=== PATIENT | female | born 1940 | race Caucasian/White ===

== ENCOUNTER → 2016-11-29 | Outpatient (CLI) | payer MEDICARE ==
--- NOTE | 2016-12-02 17:10 | Diagnostic Imaging Report ---
EXAM: Bilateral screening mammogram The current study was also evaluated with a Computer Aided Detection (CAD) system. INDICATION: Screening. No current complaints stated on the questionnaire. COMPARISON: 11/26/2015. FINDINGS: The breasts are composed of scattered from densities. There are occasional benign-appearing calcifications. Allowing for technique and positional differences, no suspicious change is seen. IMPRESSION: No significant change. ACR BI-RADS Category 2: Benign findings. Result letter will be mailed to the patient. Note: At least 10% of breast cancer is not imaged by mammography. Dictated by: Dictated on workstation # [id number]
== END ==
LOC: RAD 10:03
PROVIDERS: ATTEND Internal Medicine
DX: Z12.31 Encounter for screening mammogram for malignant neoplasm of breast (principal)
CPT/HCPCS: 77067

== ENCOUNTER → 2017-12-01 | Outpatient (CLI) | payer MEDICARE ==
--- NOTE | 2017-12-01 19:51 | Diagnostic Imaging Report ---
INDICATION: Routine screening. COMPARISON: Comparison is made with prior mammogram from 11/29/2016 and 11/26/2015. TECHNIQUE: Bilateral 3D digital tomographic views were obtained with [employer] and reviewed on a [employer] workstation. In addition, CAD - computer aided detection was utilized. FINDINGS: Scattered fibroglandular densities are identified bilaterally. No dominant mass or malignant-appearing microcalcifications are seen. Circumscribed nodular density in the posterior left breast at the nipple line on the MLO view is noted and appears benign. Axillae are unremarkable. IMPRESSION: No mammographic features suspicious for malignancy are identified. ACR BI-RADS Category 2: Benign findings. Result letter will be mailed to the patient. Note: At least 10% of breast cancer is not imaged by mammography. Dictated by: Dictated on workstation # [id number]
== END ==
LOC: RAD 10:51
PROVIDERS: ATTEND Nurse Practitioner
DX: Z12.31 Encounter for screening mammogram for malignant neoplasm of breast (principal)
CPT/HCPCS: 77067

== ENCOUNTER → 2018-12-04 | Outpatient (CLI) | payer MEDICARE ==
--- NOTE | 2018-12-04 11:56 | Diagnostic Imaging Report ---
INDICATION: Screening. TECHNIQUE: Bilateral CC and MLO 3D mammography was performed. The current study was also evaluated with a Computer Aided Detection (CAD) system. COMPARISON: 12/01/2017, 11/29/2016, and 11/26/2015. FINDINGS: There are scattered fibroglandular densities bilaterally. There are a few benign type calcifications. There is no dominant mass, spiculated lesion, or suspicious calcifications identified. The skin, nipples, and axillae are unremarkable. IMPRESSION: Benign findings. ACR BI-RADS Category 2: Benign findings. Result letter will be mailed to the patient. Note: At least 10% of breast cancer is not imaged by mammography. Dictated by: Dictated on workstation # [id number]
== END ==
LOC: RAD 07:25
PROVIDERS: ATTEND Nurse Practitioner
DX: Z12.31 Encounter for screening mammogram for malignant neoplasm of breast (principal)
CPT/HCPCS: 77067

== ENCOUNTER → 2021-01-06 | Outpatient (CLI) | payer MEDICARE ==
--- NOTE | 2021-01-06 15:54 | Diagnostic Imaging Report ---
INDICATION: Pain. COMPARISON: 03/18/2008 TECHNIQUE: 3 radiographs lumbar spine dated 01/06/2021 FINDINGS: 5 lumbar type vertebral bodies are present. Mild apex left curvature of the lumbar spine, having developed since 2008. 4 mm anterolisthesis of L3 on L4, stable from the prior examination. 5 mm retrolisthesis of L1 on L2, stable to minimally worsened when compared to 2008. 3 mm retrolisthesis of L2 on L3, worsened since the prior examination. Moderate superior endplate compression deformity of L1 is present, appearing relatively similar to the prior examination. Mild scattered endplate degenerative changes are present, worsened since 2008. No new vertebral body compression deformity. Moderate disc space height loss at L4/L5, worsened since the prior examination. Mild disc space height loss at L3/L4, worsened since the prior examination. Moderate disc space height loss at L2/L3, worsened since the prior examination. Multilevel anterior osteophyte formation. Scattered facet joint degenerative changes. The sacroiliac joints are intact. No acute fracture. Moderate background vascular calcifications. IMPRESSION: Worsening moderate multilevel degenerative changes as described above without acute osseous abnormality. Chronic compression deformity involving L1. Multilevel anterolisthesis and retrolisthesis as described above, the majority appearing stable since 2007. Minimal new retrolisthesis at L2 on L3 is favored to be degenerative in nature. Dictated by: Dictated on workstation # [id number]
== END ==
LOC: RAD 15:05
PROVIDERS: ATTEND Physician Assistant
DX: S32.010A Wedge compression fracture of first lumbar vertebra, initial encounter for closed fracture (principal); M51.36 Other intervertebral disc degeneration, lumbar region; M43.16 Spondylolisthesis, lumbar region; M25.78 Osteophyte, vertebrae
CPT/HCPCS: 72100

== ENCOUNTER 2021-01-10 13:46 | Emergency (ER) | payer MEDICARE ==
[~2021-01-10] VITALS: Ht 152.4 cm; Wt 65.9 kg
--- NOTE | 2021-01-10 14:18 | ED General ---
General Chief Complaint: General Problems/Pain Stated Complaint: CONSTIPATION X 9 DAYS Nursing Triage Note: AMB TO ROOM REPORTS NO BM FOR 9 DAY WAS SEEN BY ABRAHAN DUFF ON TUE FOR SCIATIC PAIN AND NO BM WAS TOLD TO TAKE MAG CITRATE. TOOK HALF A BOTTLE YESTERDAY AND 1/2 TODAY WITH NO RESULTS. NO PAIN Nursing Sepsis Screen: No Definite Risk Source of Information: Patient Exam Limitations: No Limitations (GARETH VELAZQUEZ STUDENT) History of Present Illness Date Seen by Provider: Jan 10, 2021 Time Seen by Provider: 14:13 Initial Comments Mrs. Díaz is an 80 yo female that presents today with 9 days of constipation. She states that LBM was 01/01. States that on tuesday this week she went to the doctor and received twice daily miralax. She said that this did not help and was given a bottle of mag citrate. She took half of the bottle yesterday and half this morning around 7 and still has not been able to have a bowel movement. She has had constipation in the past but never as bad as this. Her appetite is a little less than usual, but she is still eating normally. Denies nausea/vomiting with meals. She is still passing gas, and does not complain of any pain. She denies taking any medications that could cause constipation. Timing/Duration: 1 Week Severity: Mild Modifying Factors: worse with Eating Associated Systoms: No Fever/Chills, No Nausea/Vomiting (GARETH VELAZQUEZ STUDENT) Allergies and Home Medications Patient Home Medication List Home Medication List Reviewed: Yes (GARETH VELAZQUEZ) Review of Systems Review of Systems Constitutional: No chills, No fever EENTM: no symptoms reported Respiratory: No cough, No phlegm, No short of breath Cardiovascular: No chest pain, No palpitations Gastrointestinal: No abdominal pain; constipation; No diarrhea, No dysphagia; loss of appetite (mild); No nausea, No vomiting Genitourinary: No discharge, No dysuria, No frequency Musculoskeletal: no symptoms reported; No joint pain, No joint swelling Skin: No rash (GARETH VELAZQUEZ STUDENT) Past Yhfonih-Mkxyyd-Kllfti Hx Patient Social History Recent Infectious Disease Expo: No (GARETH VELAZQUEZ) Past Medical History Cardiac: Yes High Cholesterol Cancer: Yes Brain (Tumor, uncharacterized) (BHUPINDER FLETCHER MD) Physical Exam Vital Signs Vital Signs - First Documented 01/10/21 13:50 Temp 36.8 Pulse 98 Resp 18 B/P (MAP) 138/70 (92) Pulse Ox 94 O2 Delivery Room Air (BHUPINDER FLETCHER MD) Vital Signs Capillary Refill : Less Than 3 Seconds (GARETH VELAZQUEZ STUDENT) Height, Weight, BMI Height: '" Weight: lbs. oz. kg; 28.00 BMI Method: General Appearance: No Apparent Distress, WD/WN Respiratory: Chest Non Tender, Lungs Clear, Normal Breath Sounds, No Accessory Muscle Use, No Respiratory Distress Cardiovascular: Regular Rate, Rhythm, No Edema, No Murmur, Normal Peripheral Pulses Gastrointestinal: Normal Bowel Sounds, No Organomegaly, No Pulsatile Mass, Non Tender, Soft Rectal: Deferred Extremity: Non Tender, No Calf Tenderness Neurologic/Psychiatric: Alert, Oriented x3 Skin: Normal Color, Warm/Dry (GARETH VELAZQUEZ) Progress/Results/Core Measures Suspected Sepsis Recent Fever Within 48 Hours: No Infection Criteria Present: None New/Unexplained Altered Menta: No Sepsis Screen: No Definite Risk SIRS Temperature: Pulse: 98 Respiratory Rate: 18 Blood Pressure 138 /70 Mean: 92 (GARETH VELAZQUEZ STUDENT) Results/Orders My Orders Orders - BHUPINDER FLETCHER MD Abdomen, Flat & Upright/Decub (01/10/21 14:35) (BHUPINDER FLETCHER MD) Vital Signs/I&O 01/10/21 01/10/21 13:50 15:29 Temp 36.8 Pulse 98 98 Resp 18 18 B/P (MAP) 138/70 (92) 138/70 Pulse Ox 94 94 O2 Delivery Room Air Room Air (BHUPINDER FLETCHER MD) Vital Signs/I&O Capillary Refill : Less Than 3 Seconds (GARETH VELAZQUEZ STUDENT) Blood Pressure Mean: 92 Diagnostic Imaging Diagonstic Imaging: Xray Plain Films/CT/US/NM/MRI: abdomen, pelvis Comments Abdominal x-ray viewed by me and report reviewed. See report below: NAME: JEAN DÍAZ Shannon MED REC#: [id number] PT STATUS: REG ER : 1940 PHYSICIAN: BHUPINDER FLETCHER MD ADMIT DATE: 01/10/21/ER Signed Date of Exam:01/10/21 ABDOMEN, FLAT & UPRIGHT/DECUB INDICATION: Abdominal pain. EXAMINATION: Supine and erect views of the abdomen were obtained. COMPARISON: There is no prior abdomen examination available for comparison. FINDINGS: There is gas in both the large and small bowel in a nonspecific fashion. There also appears to be a considerable amount of fecal material throughout the colon and there does seem to be a fecal impaction. These findings are similar to the recent lumbar spine exam of 01/06/2021. There is no mass or organomegaly identified. There is no pneumoperitoneum evident. There are a few faint calcifications in the left pelvis. These could be related to a uterine fibroid. Degenerative disc and bony disease is again seen throughout the lumbar spine. IMPRESSION: 1. The bowel gas pattern is nonspecific. There is no acute abnormality identified. 2. There is a considerable amount of fecal material throughout the colon and there is a fecal impaction as well. Dictated by: Dictated on workstation # [id number] Dict: 01/10/21 1501 Trans: 01/10/21 1514 [facility] [id number] Interpreted by: DON DOMINIQUE MD Electronically signed by: DON DOMINIQUE MD 01/10/21 1514 (BHUPINDER FLETCHER MD) Departure Impression Primary Impression: Fecal impaction Additional Impression: Constipation Qualified Codes: K59.00 - Constipation, unspecified Disposition: 01 HOME, SELF-CARE Condition: Stable Departure-Patient Inst. Decision time for Depature: 15:21 (BHUPINDER FLETCHER MD) Referrals: JHON CUEVAS MD (PCP/Family) Primary Care Physician Patient Instructions: Constipation in Adults, Fecal Impaction Add. Discharge Instructions: Adhere to a clear liquid diet for the remainder of today. You may continue to use MiraLAX (polyethylene glycol) 3 or 4 times a day for treatment of constipation. In addition to constipation you also have a fecal impaction (stool ball) in your rectum. Using enemas may help dissolve this stool ball and help it pass. You may use 1 or 2 enemas today and possibly an additional enema in the morning. If this does not resolve your constipation and help you pass the stool ball, consider returning for manual disimpaction by an ER provider. You may use Tylenol (acetaminophen) up to 1000 mg every 6 hours as needed. Add ibuprofen sparingly up to 400 mg every 6 hours as needed. Call with questions or concerns. Return to the ER if you have worsening symptoms. All discharge instructions reviewed with patient and/or family. Voiced understanding. Medical Student Attestation and Attending Note: I have personally interviewed and examined this patient along with Gareth Lujan, MS4. I have reviewed student documentation including history, physical, and assessments. I agree with the documentation except where otherwise noted. Exam: General: Alert, oriented, no acute distress, well developed HEENT: Normocephalic and atraumatic Heart: Regular rate and rhythm without murmur Lungs: Clear to auscultation bilaterally with normal effort Abdomen: Soft, nontender, nondistended, normal bowel sounds, fullness in the right lower abdomen suspected to be palpable stool Neuropsych: Alert, oriented, no focal deficits Skin: Warm and dry without rashes After review of x-ray, options were discussed with patient. Options include possibility for manual disimpaction versus continued MiraLAX and use of enemas. Patient prefers the latter. She was encouraged to return tomorrow if she is not making progress or symptoms worsen. (BHUPINDER FLETCHER MD) Copy Copies To 1: JOHN CUEVAS MD, DEREK MED STUDENT Jan 10, 2021 14:18 BHUPINDER FLETCHER MD Jan 10, 2021 15:23
--- NOTE | 2021-01-10 15:10 | Diagnostic Imaging Report ---
INDICATION: Abdominal pain. EXAMINATION: Supine and erect views of the abdomen were obtained. COMPARISON: There is no prior abdomen examination available for comparison. FINDINGS: There is gas in both the large and small bowel in a nonspecific fashion. There also appears to be a considerable amount of fecal material throughout the colon and there does seem to be a fecal impaction. These findings are similar to the recent lumbar spine exam of 01/06/2021. There is no mass or organomegaly identified. There is no pneumoperitoneum evident. There are a few faint calcifications in the left pelvis. These could be related to a uterine fibroid. Degenerative disc and bony disease is again seen throughout the lumbar spine. IMPRESSION: 1. The bowel gas pattern is nonspecific. There is no acute abnormality identified. 2. There is a considerable amount of fecal material throughout the colon and there is a fecal impaction as well. Dictated by: Dictated on workstation # [id number]
[2021-01-10 15:29] VITALS: BP 138/70
== END 2021-01-10 15:28 | disposition home or self-care (01) ==
LOC: EDUNIT# 13:46 → ER 13:48
DX: K59.00 Constipation, unspecified (principal)
CPT/HCPCS: 74019

== ENCOUNTER → 2021-12-28 | Outpatient (CLI) | payer MEDICARE ==
--- NOTE | 2021-12-28 15:52 | Diagnostic Imaging Report ---
INDICATION: Routine screening. Comparison is made with prior mammogram from 12/04/2018 and 12/01/2017. 2-D and 3-D bilateral screening mammography was performed with CAD. Scattered fibroglandular densities are identified bilaterally. The parenchymal pattern is stable. There are scattered benign calcifications. No mass or malignant-appearing microcalcifications are seen. Axillae are unremarkable. IMPRESSION: No mammographic features suspicious for malignancy are identified. ACR BI-RADS Category 2: Benign findings. Result letter will be mailed to the patient. Note: At least 10% of breast cancer is not imaged by mammography. BI-RADS Category 2 Dictated by: Dictated on workstation # [id number]
== END ==
LOC: RAD 08:29
PROVIDERS: ATTEND Nurse Practitioner Family
DX: Z12.31 Encounter for screening mammogram for malignant neoplasm of breast (principal)
CPT/HCPCS: 77063; 77067

== ENCOUNTER → 2022-12-30 | Outpatient (CLI) | payer MEDICARE ==
--- NOTE | 2022-12-30 12:07 | Diagnostic Imaging Report ---
INDICATION: Routine screening. COMPARISON: 12/28/2021 and 12/04/2018. TECHNIQUE: 2D and 3D bilateral screening mammography was performed with CAD. FINDINGS: Scattered fibroglandular densities are identified bilaterally. The parenchymal pattern is stable. No mass or malignant-appearing microcalcifications are seen. The axillae are unremarkable. IMPRESSION: No mammographic features suspicious for malignancy are identified. ACR BI-RADS Category 1: Negative. Result letter will be mailed to the patient. Note: At least 10% of breast cancer is not imaged by mammography. Dictated by: Dictated on workstation # [id number]
== END ==
LOC: RAD 10:37
PROVIDERS: ATTEND Internal Medicine
DX: Z12.31 Encounter for screening mammogram for malignant neoplasm of breast (principal)
CPT/HCPCS: 77063; 77067

== ENCOUNTER 2023-04-18 11:04 | Emergency (ER) | payer MEDICARE, OTHER ==
[~2023-04-18] VITALS: Ht 152 cm; Wt 65.0 kg
[2023-04-18 11:12] VITALS: BP 130/67
--- NOTE | 2023-04-18 11:24 | ED General ---
General Chief Complaint: Fever-Adult/Adol Stated Complaint: VOMITING | FEVER Nursing Triage Note: PT AMBULATE TO ROOM 05 WITHOUT DIFFICULTY WITH C/O. PT STATES HAS BEEN VOMITING AND HAS HAD FEVER. PT STATES HAS BEEN SICK FOR APPROX 3 DAYS Source of Information: Patient Exam Limitations: No Limitations History of Present Illness Date Seen by Provider: Apr 18, 2023 Time Seen by Provider: 11:09 Initial Comments 82-year-old female presents to the ER with reports of 3 days of not feeling well. She states that she has been fatigued, just laying around in bed. States that this morning she started vomiting and having a fever. She reports 3 episodes of vomiting today. She also reports a cough. She reports bilateral mid to lower back and bilateral side pain, since a fall which occurred 1.5 months ago, denies any change in this pain. Denies chest pain, shortness of air, abdominal pain, diarrhea, dysuria. Last bowel movement was yesterday and normal. Allergies and Home Medications Allergies Coded Allergies: No Known Drug Allergies (Unverified , 04/18/23) Patient Home Medication List Home Medication List Reviewed: Yes Ondansetron (Ondansetron Odt) 4 Mg Tab.rapdis, 4 MG SL Q4H PRN for NAUSEA/VOMITING Prescribed by: Daily Briggs on 04/18/23 1314 Review of Systems Review of Systems Constitutional: see HPI Past Ngngzmq-Jssryj-Bcqzbk Hx Patient Social History Tobacco Use?: No Substance use?: No Alcohol Use?: No Pt feels they are or have been: No Immunizations Up To Date First/Initial COVID19 Vaccinat: YES Second COVID19 Vaccination Abdiel: YES Past Medical History Surgery/Hospitalization HX: BRAIN TUMOR, THYROID, APPY, HTN, ANXIETY, Surgeries: Yes Appendectomy Cardiac: Yes High Cholesterol Neurological: Yes (DX 10/26) Brain Tumor Gastrointestinal: No Musculoskeletal: No Cancer: Yes Brain Psychosocial: No Physical Exam Vital Signs Vital Signs - First Documented 04/18/23 11:12 Temp 36.7 Pulse 98 Resp 16 B/P (MAP) 130/67 (88) Pulse Ox 92 Capillary Refill : Less Than 3 Seconds Height, Weight, BMI Height: '" Weight: lbs. oz. kg; 28.00 BMI Method: General Appearance: No Apparent Distress, WD/WN Neck: Normal Inspection, Supple Respiratory: Lungs Clear, No Accessory Muscle Use, No Respiratory Distress, Decreased Breath Sounds (Right lower) Cardiovascular: Tachycardia Gastrointestinal: Normal Bowel Sounds, Non Tender, Soft Extremity: Normal Inspection, Normal Range of Motion Neurologic/Psychiatric: Alert, Normal Mood/Affect Skin: Normal Color, Warm/Dry Focused Exam Lactate Level 04/18/23 11:30: Lactic Acid Level 0.90 Lactic Acid Level Laboratory Tests Test 04/18/23 11:30 Lactic Acid Level 0.90 MMOL/L (0.50-2.00) Progress/Results/Core Measures Suspected Sepsis SIRS Temperature: Pulse: 98 Respiratory Rate: 16 Laboratory Tests 04/18/23 11:20: White Blood Count 9.1 Blood Pressure 130 /67 Mean: 88 04/18/23 11:30: Lactic Acid Level 0.90 Laboratory Tests 04/18/23 11:20: Creatinine 0.66, INR Comment 1.0, Platelet Count 200, Total Bilirubin 1.2H Results/Orders Lab Results Laboratory Tests Test 04/18/23 11:20 04/18/23 11:27 04/18/23 11:30 04/18/23 12:29 Range/Units White Blood Count 9.1 4.3-11.0 10^3/uL Red Blood Count 4.75 3.80-5.11 10^6/uL Hemoglobin 13.9 11.5-16.0 g/dL Hematocrit 42 35-52 % Mean Corpuscular Volume 87 80-99 fL Mean Corpuscular Hemoglobin 29 25-34 pg Mean Corpuscular Hemoglobin Concent 34 32-36 g/dL Red Cell Distribution Width 12.9 10.0-14.5 % Platelet Count 200 130-400 10^3/uL Mean Platelet Volume 10.2 9.0-12.2 fL Immature Granulocyte % (Auto) 0 % Neutrophils (%) (Auto) 69 42-75 % Lymphocytes (%) (Auto) 19 12-44 % Monocytes (%) (Auto) 11 0-12 % Eosinophils (%) (Auto) 1 0-10 % Basophils (%) (Auto) 0 0-10 % Neutrophils # (Auto) 6.2 1.8-7.8 10^3/uL Lymphocytes # (Auto) 1.7 1.0-4.0 10^3/uL Monocytes # (Auto) 1.0 0.0-1.0 10^3/uL Eosinophils # (Auto) 0.1 0.0-0.3 10^3/uL Basophils # (Auto) 0.0 0.0-0.1 10^3/uL Immature Granulocyte # (Auto) 0.0 0.0-0.1 10^3/uL Prothrombin Time 13.1 12.2-14.7 SEC INR Comment 1.0 0.8-1.4 Activated Partial Thromboplast Time 35 24-35 SEC Sodium Level 127 L 135-145 MMOL/L Potassium Level 4.1 3.6-5.0 MMOL/L Chloride Level 96 L 98-107 MMOL/L Carbon Dioxide Level 24 21-32 MMOL/L Anion Gap 7 5-14 MMOL/L Blood Urea Nitrogen 7 7-18 MG/DL Creatinine 0.66 0.60-1.30 MG/DL Estimat Glomerular Filtration Rate 88 BUN/Creatinine Ratio 11 Glucose Level 114 H 70-105 MG/DL Calcium Level 9.7 8.5-10.1 MG/DL Corrected Calcium 9.7 8.5-10.1 MG/DL Total Bilirubin 1.2 H 0.1-1.0 MG/DL Aspartate Amino Transf (AST/SGOT) 43 H 5-34 U/L Alanine Aminotransferase (ALT/SGPT) 34 0-55 U/L Alkaline Phosphatase 132 40-136 U/L Total Protein 8.0 6.4-8.2 GM/DL Albumin 4.0 3.2-4.5 GM/DL Influenza Type A (RT-PCR) Not Detected Not Detecte Influenza Type B (RT-PCR) Not Detected Not Detecte SARS-CoV-2 RNA (RT-PCR) Not Detected Not Detecte Lactic Acid Level 0.90 0.50-2.00 MMOL/L Urine Color YELLOW Urine Clarity SLIGHTLY CLOUDY Urine pH 7.0 5-9 Urine Specific Lilly 1.015 L 1.016-1.022 Urine Protein NEGATIVE NEGATIVE Urine Glucose (UA) NEGATIVE NEGATIVE Urine Ketones NEGATIVE NEGATIVE Urine Nitrite NEGATIVE NEGATIVE Urine Bilirubin NEGATIVE NEGATIVE Urine Urobilinogen 0.2 < = 1.0 MG/DL Urine Leukocyte Esterase NEGATIVE NEGATIVE Urine RBC (Auto) 2+ H NEGATIVE Urine RBC 10-25 H /HPF Urine WBC NONE /HPF Urine Squamous Epithelial Cells RARE /HPF Urine Crystals NONE /LPF Urine Bacteria FEW H /HPF Urine Casts NONE /LPF Urine Mucus NEGATIVE /LPF Urine Culture Indicated CULTURE PENDING My Orders Orders - DAILY PONCE Ingrid REED Cbc With Automated Diff (04/18/23 11:19) Comprehensive Metabolic Panel (04/18/23 11:19) Blood Culture (04/18/23 11:19) Sputum Culture (04/18/23 11:19) Urinalysis (04/18/23 11:19) Urine Culture (04/18/23:) Protime With Inr (04/18/23:) Partial Thromboplastin Time (04/18/23 11:19) Chest 1 View, Ap/Pa Only (04/18/23 11:19) Ed Iv/Invasive Line Start (04/18/23:19) Vital Signs Adult Sepsis Patie Q15M (04/18/23 11:19) Remove Rings In Anticipation O (04/18/23 11:) Lactic Acid Analyzer (04/18/23 11:) Ns Iv 1000 Ml (Ns Iv 1000 Ml) (04/18/23 11:30) Covid 19 Inhouse Test (04/18/23 11:19) Influenza A And B By Pcr (04/18/23 11:19) Ondansetron Injection (Ondansetron Inj (04/18/23 11:30) Medications Given in ED Current Medications Medications Dose Ordered Sig/Johny Route Start Time Stop Time Status Last Admin Dose Admin Ondansetron HCl 4 mg ONCE ONCE IVP 04/18/23 11:30 04/18/23 11:31 DC 04/18/23 11:29 4 MG Vital Signs/I&O 04/18/23 11:12 Temp 36.7 Pulse 98 Resp 16 B/P (MAP) 130/67 (88) Pulse Ox 92 Capillary Refill : Less Than 3 Seconds Blood Pressure Mean: 88 Progress Note : Progress Note Patient seen and evaluated, resting comfortably in bed, no acute distress. Based on exam and symptoms, differential diagnosis includes but not limited to COVID, flu, pneumonia, UTI, viral URI. Work-up initiated including CBC, CMP, coags, lactic acid, blood cultures x2, sputum culture, urinalysis, chest x-ray, COVID and flu swab. IV fluids and Zofran ordered. 1305 Labs and x-ray reviewed. CBC grossly normal. CMP shows decreased sodium 127, decreased chloride 96. Total bilirubin slightly elevated 1.2. AST elevated 43. Lactic acid normal. Coags normal. Urinalysis shows 2+ RBCs, negative nitrates, negative leukocytes, negative WBCs, rare squamous epithelial cells, few bacteria. Flu negative. Chest x-ray shows mild right bibasilar atelectasis and slight elevation of the right hemidiaphragm. Results discussed with patient. Patient instructed to follow-up with primary care provider regarding blood in urine. This is likely a viral illness. No reason for antibiotics at this time. Will discharge with Zofran. Discharge instructions and return precautions provided. Departure Impression Primary Impression: Influenza-like symptoms Additional Impression: Hematuria Qualified Codes: R31.9 - Hematuria, unspecified Disposition: HOME, SELF-CARE Condition: Stable Departure-Patient Inst. Decision time for Depature: 13:11 Referrals: JHON CUEVAS MD (PCP/Family) Primary Care Physician Patient Instructions: Viral Upper Respiratory Infection, Adult (DC) Add. Discharge Instructions: Take Zofran as needed for nausea and vomiting. It can cause constipation. Follow-up with your primary care provider regarding the blood in your urine. Return for recurrent vomiting, severe shortness of breath, or any other new, concerning, or worsening symptoms. All discharge instructions reviewed with patient and/or family. Voiced understanding. Scripts Ondansetron (Ondansetron Odt) 4 Mg Tab.rapdis 4 MG SL Q4H PRN for NAUSEA/VOMITING, #10 TAB 0 Refills Prov: DAILY PONCE APRN 04/18/23 Copy Copies To 1: JHON CUEVAS MD, BRITTANY R APRN Apr 18, 2023 11:24
[2023-04-18 11:27] LABS: BASOPHILS % (AUTO) 0 % (0-10); EOSINOPHILS # (AUTO) 0.1 10^3/uL (0.0-0.3); EOSINOPHILS % (AUTO) 1 % (0-10); HEMATOCRIT 42 % (35-52); HEMOGLOBIN 13.9 g/dL (11.5-16.0); LYMPHOCYTES # (AUTO) 1.7 10^3/uL (1.0-4.0); LYMPHOCYTES % (AUTO) 19 % (12-44); MEAN CORPUSCULAR HEMOGLOBIN 29 pg (25-34); MEAN CORPUSCULAR HGB CONC 34 g/dL (32-36); MEAN CORPUSCULAR VOLUME 87 fL (80-99); MEAN PLATELET VOLUME 10.2 fL (9.0-12.2); MONOCYTES % (AUTO) 11 % (0-12); NEUTROPHILS # (AUTO) 6.2 10^3/uL (1.8-7.8); NEUTROPHILS % (AUTO) 69 % (42-75); PLATELET COUNT 200 10^3/uL (130-400); WHITE BLOOD COUNT 9.1 10^3/uL (4.3-11.0)
[2023-04-18] MEDS ORDERED: NS IV 1000 ML 1,000 ML IV SCH (11:30)
[2023-04-18] MEDS ORDERED: ONDANSETRON INJECTION 4 MG/2 ML (SDV) IVP ONE (11:30)
[2023-04-18 11:39] LABS: PROTHROMBIN TIME PATIENT 13.1 SEC (12.2-14.7)
[2023-04-18 11:48] LABS: BILIRUBIN,TOTAL 1.2 MG/DL (0.1-1.0); CALCIUM 9.7 MG/DL (8.5-10.1); CREATININE SERUM 0.66 MG/DL (0.60-1.30); POTASSIUM 4.1 MMOL/L (3.6-5.0)
--- NOTE | 2023-04-18 12:10 | Diagnostic Imaging Report ---
CLINICAL INDICATIONS: Patient with fever, vomiting and cough. EXAM: Portable chest x-ray upright view. COMPARISON: None. FINDINGS: Lungs/pleura: There is slight elevation of the right hemidiaphragm. There is mild right basilar atelectasis. There is no pneumothorax. There is no pleural effusion. Mediastinum: Unremarkable. Pulmonary vasculature: Unremarkable. Heart: Unremarkable. Bones/extrathoracic soft tissue: Interposition of air-filled colon overlying the right hemidiaphragm and liver. There are degenerative spurs involving the thoracic spine. IMPRESSION: There is mild right basilar atelectasis. There is no radiographic evidence of acute cardiopulmonary process. Dictated by: Dictated on workstation # [id number]
[2023-04-18 12:55] LABS: BILIRUBIN,URINE NEGATIVE (NEGATIVE); CLARITY,URINE SLIGHTLY CLOUDY; COLOR,URINE YELLOW; GLUCOSE, URINE (UA) NEGATIVE (NEGATIVE); KETONES,URINE NEGATIVE (NEGATIVE); LEUKOCYTE ESTERASE ,URINE NEGATIVE (NEGATIVE); NITRITE,URINE NEGATIVE (NEGATIVE); PROTEIN,URINE NEGATIVE (NEGATIVE)
[2023-04-18 12:56] LABS: BACTERIA,URINE FEW /HPF; SQUAMOUS EPITHELIAL CELL,UR RARE /HPF
[2023-04-18] MEDS ORDERED: ONDA4TAB11 SL (13:14)
== END 2023-04-18 13:40 | disposition home or self-care (01) ==
LOC: EDUNIT# 11:04 → ER 11:06
DX: J11.1 Influenza due to unidentified influenza virus with other respiratory manifestations (principal); R31.9 Hematuria, unspecified; E87.1 Hypo-osmolality and hyponatremia; E87.8 Other disorders of electrolyte and fluid balance, not elsewhere classified; J98.11 Atelectasis; R74.01 Elevation of levels of liver transaminase levels; Z20.822 Contact with and (suspected) exposure to COVID-19
CPT/HCPCS: 36415; 71045; 80053; 81000; 83605; 85025; 85610; 85730; 87040; 87088; 87636

== ENCOUNTER 2023-04-19 16:27 | Inpatient (IN) | payer MEDICARE, OTHER ==
[~2023-04-19] VITALS: Ht 152 cm; Wt 56.6 kg
[~2023-04-19 16:27] MED LIST: ONDA4TAB11 SL
[2023-04-19] MEDS ORDERED: ACETAMINOPHEN 500 MG TABLET PO ONE (17:00)
[2023-04-19] MEDS: NS IV 1000 ML 1,000 ML IV SCH ×4 (17:07→20:38)
[2023-04-19 17:11] LABS: BASOPHILS % (AUTO) 0 % (0-10); EOSINOPHILS % (AUTO) 0 % (0-10); HEMATOCRIT 36 % (35-52); HEMOGLOBIN 12.1 g/dL (11.5-16.0); LYMPHOCYTES # (AUTO) 2.2 10^3/uL (1.0-4.0); LYMPHOCYTES % (AUTO) 23 % (12-44); MEAN CORPUSCULAR HEMOGLOBIN 29 pg (25-34); MEAN CORPUSCULAR HGB CONC 33 g/dL (32-36); MEAN CORPUSCULAR VOLUME 88 fL (80-99); MEAN PLATELET VOLUME 10.5 fL (9.0-12.2); MONOCYTES # (AUTO) 1.4 10^3/uL (0.0-1.0); MONOCYTES % (AUTO) 15 % (0-12); NEUTROPHILS # (AUTO) 5.6 10^3/uL (1.8-7.8); NEUTROPHILS % (AUTO) 61 % (42-75); PLATELET COUNT 174 10^3/uL (130-400); WHITE BLOOD COUNT 9.3 10^3/uL (4.3-11.0)
[2023-04-19 17:23] LABS: ALBUMIN 3.6 GM/DL (3.2-4.5); BILIRUBIN,TOTAL 2.4 MG/DL (0.1-1.0); CALCIUM 9.4 MG/DL (8.5-10.1); CREATININE SERUM 0.66 MG/DL (0.60-1.30); POTASSIUM 3.4 MMOL/L (3.6-5.0); TOTAL PROTEIN 7.2 GM/DL (6.4-8.2)
--- NOTE | 2023-04-19 17:25 | ED General ---
General Chief Complaint: General Problems/Pain Stated Complaint: WEAKNESS Nursing Triage Note: PT ARRIVES TO ER VIA FROM HOME. PT WAS SEEN IN ER YESTERDAY, REPORTS CXR WAS CLEAR, SENT HOME. EMS REPORTS PT BECAME MUCH WEAKER TODAY, UNABLE TO AMBULATE WITHOUT ASSISTANCE. EMS STARTED AT 20G IN L AC, GAVE ZOFRAN 4MG EN ROUTE. PT O2 SAT ON RA 88%, PLACED ON 3 L Source of Information: Patient, Family Exam Limitations: Other (RADU WALDEN DO) History of Present Illness Date Seen by Provider: Apr 19, 2023 Time Seen by Provider: 17:19 Initial Comments 82-year-old female presents to the emergency department from home. She was seen in the ER yesterday for fever, family member with her states chest x-ray was done and some labs she was sent home he states they told her she had a little bit of blood in her urine but everything became worse today. She became much weaker unable to stand on her own unable to walk. She was brought in by EMS. She did receive Zofran in route. She states she is having a hard time coughing anything up but feels like she needs to she denies any pain or nausea. Family Dianelys states that she does not seem to be making sense when she is talking. While I was talking to her she does appear to mumble and ramble. Initial plan on primary assessment is to admit for sepsis. Timing/Duration: 24 Hours Severity: Moderate Associated Systoms: Fever/Chills, Weakness (RADU WALDEN DO) Allergies and Home Medications Allergies Coded Allergies: No Known Drug Allergies (Unverified , 04/18/23) Patient Home Medication List Home Medication List Reviewed: Yes (CORY LANIER MD) Ondansetron (Ondansetron Odt) 4 Mg Tab.rapdis, 4 MG SL Q4H PRN for NAUSEA/VOMITING Prescribed by: Daily Briggs on 04/18/23 1314 Review of Systems Review of Systems Constitutional: fever, malaise, weakness, weight loss EENTM: no symptoms reported Respiratory: see HPI, cough Cardiovascular: no symptoms reported Gastrointestinal: no symptoms reported Genitourinary: no symptoms reported : No Musculoskeletal: no symptoms reported Skin: no symptoms reported Psychiatric/Neurological: No Symptoms Reported Hematologic/Lymphatic: No Symptoms Reported Immunological/Allergic: no symptoms reported (RADU WALDEN DO) All Other Systems Reviewed Negative Unless Noted: Yes (RADU WALDEN DO) Past Sthfgqf-Nbrply-Judufq Hx Patient Social History Tobacco Use?: No Substance use?: No Alcohol Use?: No Pt feels they are or have been: No (RADU WALDEN DO) Immunizations Up To Date First/Initial COVID19 Vaccinat: RECEIVED Second COVID19 Vaccination Abdiel: RECEIVED (RADU WALDEN DO) Past Medical History Surgery/Hospitalization HX: BRAIN TUMOR, THYROID, APPY, HTN, ANXIETY, Surgeries: Yes Appendectomy Cardiac: Yes High Cholesterol Neurological: Yes (DX 10/26) Brain Tumor Gastrointestinal: No Musculoskeletal: No Cancer: Yes Brain Psychosocial: No (RADU WALDEN DO) Physical Exam-Suspected Sepsis Physical Exam Vital Signs Vital Signs - First Documented 04/19/23 04/19/23 16:31 19:27 Temp 39.0 Pulse 99 Resp 16 B/P (MAP) 127/63 (84) Pulse Ox 92 O2 Delivery Nasal Cannula O2 Flow Rate 3.00 (CORY LANIER MD) Vital Signs Capillary Refill : (RADU WALDEN DO) Blood Pressure Mean: 84 Height, Weight, BMI Height: '" Weight: lbs. oz. kg; 24.00 BMI Method: General Appearance: WD/WN, Mild Distress Eyes: Bilateral Eye Normal Inspection, Bilateral Eye PERRL, Bilateral Eye EOMI HEENT: Normal ENT Inspection, Pharynx Normal, Moist Mucous Membranes Neck: Full Range of Motion, Normal Inspection, Non Tender, Supple Respiratory: Chest Non Tender, Lungs Clear, Normal Breath Sounds, No Accessory Muscle Use, No Respiratory Distress Cardiovascular: Regular Rate, Rhythm, No Edema Gastrointestinal: Normal Bowel Sounds, Non Tender Back: Normal Inspection Extremity: Normal Capillary Refill, Normal Inspection, Normal Range of Motion, Non Tender Neurologic/Psychiatric: Alert, 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 No slurring or aphasia) Skin: normal color, warm/dry; No pallor, No rash Lymphatic: No Adenopathy (RADU WALDEN DO) Focused Exam Lactate Level 04/19/23 16:36: Lactic Acid Level 1.03 (CORY LANIER MD) Lactic Acid Level (CORY LANIER MD) Progress/Results/Core Measures Suspected Sepsis Recent Fever Within 48 Hours: Yes New/Unexplained Altered Menta: Yes Within 3hrs of presentation: Admin fluids, Admin ABX, Blood cultures prior to ABX's SIRS Temperature: Pulse: 99 Respiratory Rate: 16 Laboratory Tests 04/19/23 16:36: White Blood Count 9.3 Blood Pressure 127 /63 Mean: 84 04/19/23 16:36: Laboratory Tests 04/19/23 16:36: Creatinine 0.66, Platelet Count 174, Total Bilirubin 2.4H (RADU WALDEN DO) Results/Orders Lab Results Laboratory Tests Test 04/19/23 16:36 04/19/23 16:38 04/19/23 17:11 04/19/23 17:19 Range/Units White Blood Count 9.3 4.3-11.0 10^3/uL Red Blood Count 4.15 3.80-5.11 10^6/uL Hemoglobin 12.1 11.5-16.0 g/dL Hematocrit 36 35-52 % Mean Corpuscular Volume 88 80-99 fL Mean Corpuscular Hemoglobin 29 25-34 pg Mean Corpuscular Hemoglobin Concent 33 32-36 g/dL Red Cell Distribution Width 12.7 10.0-14.5 % Platelet Count 174 130-400 10^3/uL Mean Platelet Volume 10.5 9.0-12.2 fL Immature Granulocyte % (Auto) 0 % Neutrophils (%) (Auto) 61 42-75 % Lymphocytes (%) (Auto) 23 12-44 % Monocytes (%) (Auto) 15 H 0-12 % Eosinophils (%) (Auto) 0 0-10 % Basophils (%) (Auto) 0 0-10 % Neutrophils # (Auto) 5.6 1.8-7.8 10^3/uL Lymphocytes # (Auto) 2.2 1.0-4.0 10^3/uL Monocytes # (Auto) 1.4 H 0.0-1.0 10^3/uL Eosinophils # (Auto) 0.0 0.0-0.3 10^3/uL Basophils # (Auto) 0.0 0.0-0.1 10^3/uL Immature Granulocyte # (Auto) 0.0 0.0-0.1 10^3/uL Sodium Level 122 *L 135-145 MMOL/L Potassium Level 3.4 L 3.6-5.0 MMOL/L Chloride Level 88 L 98-107 MMOL/L Carbon Dioxide Level 26 21-32 MMOL/L Anion Gap 8 5-14 MMOL/L Blood Urea Nitrogen 9 7-18 MG/DL Creatinine 0.66 0.60-1.30 MG/DL Estimat Glomerular Filtration Rate 88 BUN/Creatinine Ratio 14 Glucose Level 116 H 70-105 MG/DL Lactic Acid Level 1.03 0.50-2.00 MMOL/L Calcium Level 9.4 8.5-10.1 MG/DL Corrected Calcium 9.7 8.5-10.1 MG/DL Total Bilirubin 2.4 H 0.1-1.0 MG/DL Aspartate Amino Transf (AST/SGOT) 44 H 5-34 U/L Alanine Aminotransferase (ALT/SGPT) 33 0-55 U/L Alkaline Phosphatase 103 40-136 U/L Total Protein 7.2 6.4-8.2 GM/DL Albumin 3.6 3.2-4.5 GM/DL Influenza Type A (RT-PCR) Not Detected Not Detecte Influenza Type B (RT-PCR) Not Detected Not Detecte SARS-CoV-2 RNA (RT-PCR) Not Detected Not Detecte Group A Streptococcus Screen Not Detected NotDetected Urine Color BROWN H Urine Clarity CLEAR Urine pH 5.5 5-9 Urine Specific [place] 1.025 H 1.016-1.022 Urine Protein 1+ H NEGATIVE Urine Glucose (UA) NEGATIVE NEGATIVE Urine Ketones NEGATIVE NEGATIVE Urine Nitrite NEGATIVE NEGATIVE Urine Bilirubin 1+ H NEGATIVE Urine Urobilinogen >=8.0 < = 1.0 MG/DL Urine Leukocyte Esterase NEGATIVE NEGATIVE Urine RBC (Auto) 3+ H NEGATIVE Urine RBC 10-25 H /HPF Urine WBC NONE /HPF Urine Squamous Epithelial Cells NONE /HPF Urine Crystals NONE /LPF Urine Bacteria TRACE /HPF Urine Casts NONE /LPF Urine Mucus NEGATIVE /LPF Urine Yeast FEW H /HPF Urine Culture Indicated NO (CORY LANIER MD) My Orders Orders - CORY LANIER MD Ed Admission (Communication) (04/19/23 19:27) (CORY LANIER MD) Medications Given in ED Current Medications Medications Dose Ordered Sig/Johny Route Start Time Stop Time Status Last Admin Dose Admin Acetaminophen 1,000 mg ONCE ONCE PO 04/19/23 17:00 04/19/23 17:02 DC 04/19/23 17:07 1,000 MG Ceftriaxone Sodium 1000 mg/ Sodium Chloride 50 ml @ 100 mls/hr ONCE ONCE IV 04/19/23 17:30 04/19/23 17:59 DC 04/19/23 17:51 100 MLS/HR (CORY LANIER MD) Vital Signs/I&O 04/19/23 04/19/23 04/19/23 04/19/23 16:31 17:07 19:27 20:00 Temp 39.0 39.0 36.0 Pulse 99 82 79 Resp 16 18 18 B/P (MAP) 127/63 (84) 138/76 112/72 (85) Pulse Ox 92 95 95 O2 Delivery Nasal Cannula Nasal Cannula Nasal Cannula O2 Flow Rate 3.00 3.00 04/19/23 04/19/23 21:47 23:46 Temp 36.8 Pulse 74 Resp 18 B/P (MAP) 103/65 (78) Pulse Ox 95 98 O2 Delivery Nasal Cannula Nasal Cannula O2 Flow Rate 3.00 3.00 3.00 (CORY LANIER MD) Vital Signs/I&O Capillary Refill : (RADU WALDEN DO) Blood Pressure Mean: 84 Progress Note : Time: 17:23 Progress Note Family member with her is quite concerned. Advised we would redo labs and compare them to yesterday, I would like to get a CT head secondary to altered mental status per family member, repeat chest x-ray. Will obtain lactic acid, COVID influenza, blood culture, urine culture. Plan to provide IV fluids and Tylenol as she is febrile upon arrival. Will provide 1 g of Rocephin. Do not suspect meningitis or pericarditis or other significant source for fever. But I will admit secondary to failed outpatient therapy and declining status overall. Family member is relieved and agrees with this plan. Will discuss with oncoming emergency department physician as work-up will not yet be complete. We were able to speak to another family member who did mention that the patient does have a brain tumor that they have been watching at for quite some time. Will obtain CT head and repeat chest x-ray as well. It is noted the patient's sodium yesterday was 127. Sodium today is 122. Will admit for hyponatremia at the very least. I suspect symptoms are more likely associated with hyponatremia versus sepsis CBC is normal vital signs of been normal (RADU WALDEN DO) Progress Note : Time: 18:54 Progress Note Care assumed at shift change from Dr Walden. Patient re-examined. Her is present at the bedside at this time and he states she seems "a little" better. She is oriented to self, situation and year. She has not complaints other than she "doesn't feel good". She denies, [place], chest pain, shortness of breath, abdominal pain. Has had some n/v at home. No urinary complaints or diarrhea. No rashes. She has had some back pain for about 3 weeks since she fell on her bottom assisting her with something. No numbness, weakness or tingling to LE. Her states she was si significantly weak today she couldn't get off the toilet and fell on her knees. She was asking the same questions repeatedly. PE - pertinent for warm skin. 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 states "very slow growing" and is down to 1 visit [address] Horner. No meningismus. Heart regular. Lungs clear. Abdomen soft - no tenderness. No LE edema. ASsessment - fever and hyponatremia. Discussed with Dr Faith. Will admit patient to medical for sodium correction and further eval for fever. No concerns for meningitis. She does have mildly elevated Tbili. also hematuria. Would consider CT abd/ pelvis during admission. (CORY LANIER MD) Diagnostic Imaging Diagonstic Imaging: Xray (Chestreviewed by me. No significant change from yesterday), CT (Reviewed by mebrain tumor noted behind right eye socket) (RADU WALDEN DO) Departure Communication (Admissions) Time/Spoke to Admitting Phy: 18:[address] Faith (hospitalist) (CORY LANIER MD) Impression Primary Impression: Hyponatremia Additional Impressions: Altered mental status Qualified Codes: R41.0 - Disorientation, unspecified Fever Qualified Codes: R50.9 - Fever, unspecified Hematuria Qualified Codes: R31.9 - Hematuria, unspecified Total bilirubin, elevated Disposition: ADMITTED INPATIENT Condition: Stable Admissions Decision to Admit Reason: Admit from ER (General) Decision to Admit/Date: Apr 19, 2023 Time/Decision to Admit Time: 19:01 (CORY LANIER MD) Departure-Patient Inst. Referrals: JHON CUEVAS MD (PCP/Family) Primary Care Physician Copy Copies To 1: JHON CUEVAS MD, AMANDA W DO Apr 19, 2023 17:24 CORY LANIER MD Apr 19, 2023 19:00
[2023-04-19] MEDS ORDERED: cefTRIAXone IV/IM 1,000 MG in NS (IVPB) 50 ML 50 ML IV ONE (17:30)
[2023-04-19 17:38] LABS: CLARITY,URINE CLEAR; COLOR,URINE BROWN
[2023-04-19] MEDS ORDERED: cefTRIAXone 1,000 MG VIAL IV/IM ONE (17:38)
[2023-04-19 17:39] LABS: BACTERIA,URINE TRACE /HPF; BILIRUBIN,URINE 1+ (NEGATIVE); GLUCOSE, URINE (UA) NEGATIVE (NEGATIVE); KETONES,URINE NEGATIVE (NEGATIVE); LEUKOCYTE ESTERASE ,URINE NEGATIVE (NEGATIVE); NITRITE,URINE NEGATIVE (NEGATIVE); PH,URINE 5.5 (5-9); PROTEIN,URINE 1+ (NEGATIVE); YEAST,URINE FEW /HPF
--- NOTE | 2023-04-19 18:03 | Diagnostic Imaging Report ---
PROCEDURE: CT head without contrast. TECHNIQUE: Multiple contiguous axial images were obtained through the brain without the use of intravenous contrast. Auto Exposure Controls were utilized during the CT exam to meet ALARA standards for radiation dose reduction. INDICATION: Altered mental status and history of brain tumor. No relevant comparison examination is available. FINDINGS: There is a mass lesion which is present within the medial aspect of the right middle cranial fossa abutting the right cavernous sinus. This is near the anterior clinoid process. This is nonspecific by CT imaging. Most likely consideration is that of a meningioma, though there is a suggestion that there may be some expansion of the sella, and this could conceivably reflect extension of a pituitary neoplasm. There is no evidence of associated mass effect. There is no evidence of mass effect on the optic chiasm. By CT, this mass measures approximately 2.8 cm AP x 2.5 cm transverse x 2.4 cm craniocaudal. There are no CT findings of acute intracranial hemorrhage. There is no hydrocephalus. There are findings of age-related volume loss. There are minimal microvascular changes within the white matter, but no territorial loss of stubbs-white differentiation or edema. The basilar cisterns are patent. The mastoid air cells are clear. The paranasal sinuses demonstrate some minimal mucosal thickening within the ethmoids. Orbital contents are unremarkable. There is no acute calvarial abnormality. IMPRESSION: 1. No CT evidence of an acute intracranial abnormality. 2. Age-related volume loss with mild microvascular changes within the white matter. 3. No findings of hemorrhage, mass effect, or hydrocephalus. 4. Nonspecific mass within the medial aspect of the right middle cranial fossa with a subtle suggestion that there is also some expansion of the sella. This may involve the cavernous sinus. This is nonspecific by CT. Primary considerations include meningioma or possibly extension of a pituitary neoplasm. This could be further characterized with MRI if clinically indicated. Dictated by: Dictated on workstation # [id number]
--- NOTE | 2023-04-19 18:03 | Diagnostic Imaging Report ---
Indication: Fever. Time of Exam: 5:38 PM Correlation is made with prior chest from 04/18/2023. Heart size is stable. Right hemidiaphragm is chronically elevated. The lungs appear to be clear. No definite infiltrates are seen. There is no effusion or pneumothorax. The pulmonary vascularity is normal. IMPRESSION: Stable chest. No acute feature is detected. Dictated by: Dictated on workstation # [id number]
[2023-04-19 20:00] VITALS: BP 112/72
[2023-04-19] MEDS ORDERED: BISACODYL 10 MG SUPPOSITORY PR PRN (20:00)
[2023-04-19] MEDS ORDERED: ACETAMINOPHEN 325 MG TABLET PO PRN (20:00)
[2023-04-19] MEDS ORDERED: ONDANSETRON 4 MG ORAL DISSOLVE TABLET PO PRN (20:00)
[2023-04-19] MEDS ORDERED: CALCIUM CARBONATE 500 MG CHEW TABLET PO PRN (20:00)
[2023-04-19] MEDS ORDERED: NS IV 500 ML 500 ML IV PRN (20:00)
[2023-04-19] MEDS ORDERED: LACTULOSE SYRUP 10GM/15ML 30ML UDC PO PRN (20:00)
[2023-04-19] MEDS ORDERED: ONDANSETRON INJECTION 4 MG/2 ML (SDV) IV PRN (20:00)
[2023-04-19] MEDS ORDERED: MILK OF MAGNESIA 400 MG/5 ML 30 ML UDC PO PRN (20:00)
[2023-04-19] MEDS ORDERED: MELATONIN 3 MG TABLET PO PRN (20:00)
[2023-04-19] MEDS ORDERED: ANTACID SUSPENSION 30 ML UDC PO PRN (20:00)
[2023-04-19] MEDS ORDERED: NS IV 1000 ML 1,000 ML ONE (20:28)
[2023-04-19] MEDS: DOCUSATE SODIUM 100 MG CAPSULE PO SCH (21:39)
[2023-04-19] MEDS: SENNOSIDES 8.6 MG TABLET PO SCH (21:39)
[2023-04-19] MEDS: ENOXAPARIN 40 MG/0.4 ML SYRINGE SC SCH (22:01)
[2023-04-19] MEDS: SODIUM CHLORIDE 1 GM TABLET PO SCH (23:07)
[2023-04-19 23:46] VITALS: BP 103/65
[2023-04-20 04:00] VITALS: BP 110/68
[2023-04-20 05:46] LABS: BASOPHILS % (AUTO) 0 % (0-10); EOSINOPHILS # (AUTO) 0.1 10^3/uL (0.0-0.3); EOSINOPHILS % (AUTO) 1 % (0-10); HEMATOCRIT 36 % (35-52); HEMOGLOBIN 12.1 g/dL (11.5-16.0); LYMPHOCYTES # (AUTO) 1.6 10^3/uL (1.0-4.0); LYMPHOCYTES % (AUTO) 20 % (12-44); MEAN CORPUSCULAR HEMOGLOBIN 29 pg (25-34); MEAN CORPUSCULAR HGB CONC 34 g/dL (32-36); MEAN CORPUSCULAR VOLUME 86 fL (80-99); MEAN PLATELET VOLUME 10.7 fL (9.0-12.2); MONOCYTES % (AUTO) 13 % (0-12); NEUTROPHILS # (AUTO) 5.3 10^3/uL (1.8-7.8); NEUTROPHILS % (AUTO) 65 % (42-75); PLATELET COUNT 158 10^3/uL (130-400); WHITE BLOOD COUNT 8.1 10^3/uL (4.3-11.0)
[2023-04-20 05:53] LABS: POTASSIUM 3.4 MMOL/L (3.6-5.0)
[2023-04-20 05:59] LABS: CREATININE SERUM 0.58 MG/DL (0.60-1.30)
[2023-04-20] MEDS: POTASSIUM BICARB 20 MEQ effervescent TABLET PO SCH (06:00)
[2023-04-20] MEDS: POTASSIUM CL 10MEQ/50ML IVPB 50 ML IV SCH (06:00)
[2023-04-20] MEDS: POTASSIUM CHLORIDE 20 MEQ TABLET PO SCH (06:00)
[2023-04-20 06:01] LABS: MAGNESIUM 1.7 MG/DL (1.6-2.4)
[2023-04-20] MEDS: MAGNESIUM 1 GM/100 ML IVPB 100 ML IV SCH ×5 (06:02→13:07)
[2023-04-20 07:30] VITALS: BP 111/67
[2023-04-20 07:57] LABS: ALBUMIN 3.4 GM/DL (3.2-4.5); BILIRUBIN,DIRECT 0.7 MG/DL (0.0-0.3); BILIRUBIN,INDIRECT 0.9 MG/DL; BILIRUBIN,TOTAL 1.6 MG/DL (0.1-1.0); TOTAL PROTEIN 6.9 GM/DL (6.4-8.2)
[2023-04-20] MEDS: DOCUSATE SODIUM 100 MG CAPSULE PO SCH ×2 (08:56→20:29)
[2023-04-20] MEDS: SENNOSIDES 8.6 MG TABLET PO SCH ×2 (08:56→20:29)
[2023-04-20] MEDS ORDERED: POTASSIUM CHLORIDE 20 MEQ TABLET PO ONE (09:00)
--- NOTE | 2023-04-20 09:32 | Physical Therapy Evaluation ---
PT Evaluation-General Medical Diagnosis Admission Date Apr 19, 2023 at 19:55 Medical Diagnosis: Weakness, Fever, hyponatremia Onset Date: Apr 19, 2023 Therapy Diagnosis Therapy Diagnosis: Gait deficit, strength deficit Precautions Precautions/Isolations: Fall Prevention, Standard Precautions Weight Bear Status Right Lower Extremity: Right Full Weight Bearing Left Lower Extremity: Left Full Weight Bearing Referral Physician: Dr. Faith Reason for Referral: Evaluation/Treatment Social History Home: Single Level Current Living Status: Spouse Entry Into Home: Stairs With Railing PT Steps Into Home: 2 Prior Prior Level of Function SCALE: Activities may be completed with or without assistive devices. 3-Ivfqvkdulo-tbyqpce completes the activity by him/herself with no assistance from a helper. 5-Set-up or Clean-up Assistance-helper sets up or cleans up; patient completes activity. [place] assists only prior to or following the activity. 4-Supervision or Touching Assistance-helper provides verbal cues and/or touching/steadying and/or contact guard assistance as patient completes activity. Assistance may be provided throughout the activity or intermittently. 3-Partial/Moderate Assistance-helper does LESS THAN HALF the effort. [place] lifts, holds or supports trunk or limbs, but provides less than half the effort. 2-Substantial/Maximal Assistance-helper does MORE THAN HALF the effort. [place] lifts or holds trunk or limbs and provides more than half the effort. 4-Zagtowmcp-jbldju does ALL the effort. Patient does none of the effort to complete the activity. Or, the assistance of 2 or more helpers is required for the patient to complete the activity. If activity was not attempted, code reason: 7-Patient Refused. 9-Not Applicable-not attempted and the patient did not perform the activity before the current illness, exacerbation or injury. 10-Not Attempted due to Environmental Limitations-(lack of equipment, weather restraints, etc.). 88-Not Attempted due to Medical Conditions or Safety Concerns. Bed Mobility: 6 Transfers (B,C,W/C): 6 Gait: 6 Stairs: 6 Indoor Mobility (Ambulation): Independent Stairs: Independent Prior Device Use: Cane PT Evaluation-Current Subjective Patient lying supine in bed upon PT arrival, agreeable to treatment. Patient rates pain at 10/10 "In my esophagus." Objective Patient Orientation: Person, Place, Time, Situation Attachments: Oxygen, IV ROM/Strength ROM Lower Extremities WFLs BLEs all planes Strength Lower Extremities 3+/5 BLEs all planes. Sensory Vision: Wears Glasses Hearing: Functional Sensation Right Lower Extremit: Intact Sensation Left Lower Extremity: Intact Transfers Roll Left to Right (QC): 3 Sit to Lying (QC): 3 Lying to Sitting/Side of Bed(Q: 3 Sit to Stand (QC): 3 Gait Does the Patient Walk?: No and Walking Goal IS indicated Mode of Locomotion: Walk Anticipated Mode of Locomotion: Walk Balance Sitting Static: Fair Sitting Dynamic: Fair Standing Static: Poor Standing Dynamic: Poor Assessment/Needs Patient very weak and slow to perform movements. Patient requires min/mod A for all bed mobility and transfers. Patient able to stand at bedside ~ 2 minutes and performs left lateral stepping to get higher in the bed. Patient in bed post treatment with all needs met, nursing notified, call light in hand, family in the room. Rehab Potential: Fair PT Fci Goals Fci Goals PT Fci Goals Time Frame: May 07, 2023 Roll Left & Right (QC): 6 Sit to Lying (QC): 6 Lying-Sitting on Side/Bed(QC): 6 Sit to Stand (QC): 6 Chair/Erd-rm-Ukgnh Xfer(QC): 6 Toilet Transfer (QC): 6 Does the Patient Walk: Yes Walk 10 feet (QC): 6 Walk 50ft with 2 Turns (QC): 6 Walk 150 ft (QC): 6 1 Step (curb) (QC): 4 4 Steps (QC): 4 12 Steps (QC): 4 PT Plan Problem List Problem List: Activity Tolerance, Functional Strength, Safety, Balance, Gait, Transfer, Bed Mobility, ROM Treatment/Plan Treatment Plan: Continue Plan of Care Treatment Plan: Bed Mobility, Education, Functional Activity Patricia, Functional Strength, Group Therapy, Gait, Safety, Therapeutic Exercise, Transfers Treatment Duration: May 07, 2023 Frequency: 6 times per week Estimated Hrs Per Day: .25 hour per day Safety Risks/Education Patient Education: Gait Training Teaching Recipient: Patient, Family Teaching Methods: Demonstration, Discussion Response to Teaching: Verbalize Understanding, Return Demonstration Time Time In: 900 Time Out: 917 DATE: Apr 20, 2023 Total Billed Treatment Time: 17 Total Billed Treatment Visit, JHON OLIVARES PT Apr 20, 2023 09:32
[2023-04-20] MEDS ORDERED: NS 100 ML (IVPB) BAG IV ONE (11:00)
[2023-04-20] MEDS ORDERED: HOLD METFORMIN - RECEIVED CONTRAST 20 ML VIAL IV SCH (11:00)
[2023-04-20] MEDS ORDERED: IOHEXOL 350 MG/ML 100 ML (OMNIPAQUE 350) VIAL IV ONE (11:00)
--- NOTE | 2023-04-20 11:13 | Occ Therapy Progress Note ---
Therapy Progress Note Patient out of room, in CT. OT will return at next available opportunity GARRICK MCNALLY OT Apr 20, 2023 11:13
[2023-04-20] MEDS ORDERED: PANTOPRAZOLE INJECTION 40 MG VIAL IV NR (11:30)
[2023-04-20 12:19] VITALS: BP 111/69
[2023-04-20] MEDS ORDERED: ASPI-1238 PO (12:51)
[2023-04-20] MEDS ORDERED: OMEG12002 PO (12:51)
[2023-04-20] MEDS ORDERED: CITA10TA9 PO (12:51)
[2023-04-20] MEDS ORDERED: ATOR40TA70 PO (12:51)
[2023-04-20] MEDS ORDERED: BIOT25007 PO (12:51)
[2023-04-20] MEDS ORDERED: LOSA50TA63 PO (12:51)
[2023-04-20] MEDS ORDERED: ASCO500T17 PO (12:51)
--- NOTE | 2023-04-20 13:17 | History & Physical-Hospitalist ---
FARIBA WEEMS 04/20/23 1317: History of Present Illness HPI/Chief Complaint Patient is 84yo F who presented to the ED with weakness, fever, and confusion y esterday. She had come to the ER 2 days ago for fever and was sent home, but reports she got significantly worse yesterday. She became weak and was no longer able to stand or walk on her home and her family reports that she seemed very confused and wasn't making any sense, which is when they had her return to the ER yesterday by EMS. Her family states she had a temperature of 102 and was told she had some blood in the urine on the initial visit. Today, she says she has a burning pain in her chest near her esophagus that comes and goes and doesn't radiate anywhere else. She rates the pain as 10/10 and states she very rarely has acid reflux in the past. While talking to her, she is alert and oriented and her family says it is significantly improved from yesterday. She denies pain with urination, blood in her urine, but reports having an increased urinary frequency and constipation. She also reports back pain she has been having since a fall a few weeks back that has gotten a little worse recently and wraps around her side. 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 She denies chest pain or abdominal pain or shortness of breath. Source: patient, family ( and daughter) Date Seen 04/20/23 Attending Physician Teja Jacques MD PCP Admitting Physician: Nathalie Mejia MD Attending Physician: Nathalie Mejia MD Referring Physician Date of Admission Apr 19, 2023 at 19:55 Home Medications & Allergies Home Medications Reviewed patient Home Medication Reconciliation performed by pharmacy medication reconciliations hvac operations technician and/or nursing. Patients Allergies have been reviewed. Allergies Allergies Coded Allergies No Known Drug Allergies (Unverified04/18/23) Past [place]-Jbqhwk-Nnjphg Hx Patient Social History Tobacco Use?: No Smoking Status: Never a Smoker Use of E-Cig and/or Vaping dev: No Substance use?: No Alcohol Use?: No Pt feels they are or have been: No Immunizations Up To Date First/Initial COVID19 Vaccinat: RECEIVED Second COVID19 Vaccination Abdiel: RECEIVED Current Status status: No status: No Advance Directives: No Communicates: Verbally Primary Language: British Preferred Spoken Language: British Is interpretation needed?: No Implanted or Applied Medical D: None Past Medical History Surgeries: Appendectomy High Cholesterol Brain Tumor Brain Review of Systems Constitutional: fever, weakness Respiratory: cough (past couple weeks); No short of breath, No wheezing Cardiovascular: No chest pain Gastrointestinal: No abdominal pain; constipation; No diarrhea; heartburn Genitourinary: frequency (feels like she has to go every 15-30 minutes); No hematuria, No pain Musculoskeletal: back pain, muscle weakness Psychiatric/Neurological: Denies Headache Physical Exam Physical Exam Vital Signs Vital Signs - First Documented 04/19/23 04/19/23 16:31 19:27 Temp 39.0 Pulse 99 Resp 16 B/P (MAP) 127/63 (84) Pulse Ox 92 O2 Delivery Nasal Cannula O2 Flow Rate 3.00 Capillary Refill : Height, Weight, BMI Height: '" Weight: lbs. oz. kg; 24.49 BMI Method: General Appearance: No Apparent Distress Respiratory: Chest Non Tender, Lungs Clear, No Accessory Muscle Use, No Respiratory Distress Cardiovascular: Regular Rate, Rhythm, No Edema, No Murmur Gastrointestinal: Non Tender, Soft; No Distended Extremity: No Pedal Edema Neurologic/Psychiatric: Alert, Oriented x3 Skin: Normal Color, Warm/Dry Results Results/Procedures Labs Laboratory Tests 04/19/23 16:36 04/20/23 05:15 Patient resulted labs reviewed. Assessment/Plan Admission Diagnosis hyponatremia Assessment and Plan Hyponatremia Sodium level improving 129 today- 122 yesterday IV fluids Salt tablet Fever Hypoxia Epigastric pain CT abd/pelvis with and without contrast CT chest IV protonix Weakness Physical therapy consulted NATHALIE MEJIA MD 04/20/23 1805: History of Present Illness Source: patient, family ( and daughter) Exam Limitations: no limitations Time Seen by a Provider: 10:55 Past Wtutnlc-Dfecux-Ycdlgk Hx Patient Social History Tobacco Use?: No Substance use?: No Alcohol Use?: No Family Medical History No Pertinent Family Hx Results Results/Procedures Imaging: Reviewed Imaging Films, Reviewed Imaging Report, Discussed Imaging wit h Radiologist Assessment/Plan Admission Diagnosis Admission Status: Inpatient Order (span 2 midnights) Reason for Inpatient Admission: Hyponatremia Fevers Assessment and Plan Admitted with hyponatremia. Improved with IV fluids. Having fevers without infectious source identified. Obtained CT chest/abdomen/pelvis which revealed several retroperitoneal masses. Case discussed with Dr. Newell, oncology. Also discussed with Dr. Polk, radiology. Family has requested transfer to [facility] for further evaluation and treatment. Transfer requested. If unable to transfer, will proceed with either surgical or CT-guided biopsy. Diagnosis/Problems Diagnosis/Problems (1) Hyponatremia Status: Acute (2) Retroperitoneal mass Status: Acute (3) Fever Status: Acute Qualifiers: Fever type: unspecified Qualified Codes: R50.9 - Fever, unspecified (4) Altered mental status Status: Acute Qualifiers: Altered mental status type: delirium Qualified Codes: R41.0 - Di sorientation, unspecified (5) Brain tumor Status: Chronic (6) Weakness Status: Acute Supervisory-Addendum Brief Verification & Attestation Participated in pt care: history, MDM, physical Personally performed: exam, history, MDM, supervision of care Care discussed with: Medical Student Procedures: n/a A medical student performed and documented this service in my presence. I reviewed and verified all information documented by the medical student and made modifications to such information, when appropriate. I personally performed the physical exam and medical decision making. FARIBA WEEMS Apr 20, 2023 13:17 NATHALIE MEJIA MD Apr 20, 2023 18:05
[2023-04-20] MEDS ORDERED: HALOPERIDOL INJECTION 5 MG/ML VIAL IM PRN (14:45)
--- NOTE | 2023-04-20 15:36 | Diagnostic Imaging Report ---
EXAMINATION: CT abdomen and pelvis with and without intravenous contrast. TECHNIQUE: Precontrast acquisitions were acquired through the abdomen and pelvis. Multiple contiguous axial images were obtained through the abdomen and pelvis after the administration of intravenous contrast. All CT scans use one or more of the following dose optimizing techniques: automated exposure control, MA and/or KvP adjustment based on patient size and exam type or iterative reconstruction. HISTORY: Fever, hematuria. COMPARISON: None available. FINDINGS: Lung bases: Bibasilar dependent atelectasis. Solid organs: The liver is normal without focal lesion. Multiple layering hyperdense stones within the gallbladder. There is no biliary ductal dilation. There is mild diffuse atrophy of the pancreas without ductal dilatation. Spleen is normal. Adrenal glands are normal. The kidneys are normal without hydronephrosis. Bowel: The stomach and small bowel are normal without obstruction. The colon is normal. There are no secondary signs of acute appendicitis. Peritoneum: There is mild free fluid within the right upper quadrant with inflammatory stranding. This is centered upon a mildly complex cystic lesion measuring 3.9 cm. This lesion does not demonstrate any suspicious enhancement but there may be a partially calcified septation. This fluid collection or cystic lesion closely approximates the duodenum, IVC, and pancreatic head without obvious involvement of either structure. Within the retroperitoneum, there are multiple heterogeneously enhancing masses measuring up to 6.3 x 4.9 cm. Vasculature: Calcification of the aorta without aneurysm. Musculoskeletal: Multilevel degenerative changes of the spine with multilevel thoracic and lumbar compression fractures, age indeterminate. Pelvis: The uterus and adnexa are normal. Urinary bladder is distended. IMPRESSION: 1. Multiple heterogeneous enhancing soft tissue lesions within the retroperitoneum which may represent neoplastic lymphadenopathy. Recommend correlation with any prior history of cancer. 2. Complex cystic lesion or fluid collection within the retroperitoneum. This demonstrates significant surrounding inflammatory stranding with peripheral encapsulation. This could represent necrotic lymph node with superimposed infection versus other infectious/inflammatory fluid collection in the right upper quadrant. Source is indeterminate. Differential consideration includes contained perforation of the duodenum, necrotic lymph node, or walled-off necrosis from the pancreatic head. Dictated by: Dictated on workstation # [id number]
[2023-04-20 16:20] VITALS: BP 103/64
--- NOTE | 2023-04-20 16:36 | Diagnostic Imaging Report ---
EXAMINATION: CT chest without contrast. TECHNIQUE: Multiple contiguous axial images were obtained through the chest without the use of intravenous contrast. All CT scans use one or more of the following dose optimizing techniques: automated exposure control, MA and/or KvP adjustment based on patient size and exam type or iterative reconstruction. HISTORY: Fever, hypoxia COMPARISON: None available. FINDINGS: Thyroid: The thyroid is normal. Mediastinum: Heart size is normal without significant pericardial effusion. Calcifications of the aorta and coronary vessels. Thoracic aorta is normal in caliber. No suspicious lymphadenopathy. Lungs and airways: There is mild atelectasis within the dependent lungs. No focal consolidation, pleural effusion, or pneumothorax. There is mild scarring within the lung apices and lung bases. There is no suspicious pulmonary lesion. The airways are normal. Upper abdomen: Please see same day CT of the abdomen for subphrenic findings. Musculoskeletal: Age-indeterminate compression deformity of the T11 vertebral body. IMPRESSION: 1. No acute abnormality in the chest. Dictated by: Dictated on workstation # [id number]
[2023-04-20] MEDS ORDERED: SUCRALFATE 1 GM TABLET PO NR (17:15)
[2023-04-20] MEDS ORDERED: ANTACID SUSPENSION 30 ML UDC PO PRN (17:15)
[2023-04-20] MEDS: NS IV 1000 ML 1,000 ML IV SCH (17:59)
[2023-04-20] MEDS: ENOXAPARIN 40 MG/0.4 ML SYRINGE SC SCH (20:29)
[2023-04-20] MEDS: SUCRALFATE 1 GM TABLET PO SCH (20:29)
[2023-04-20 20:44] VITALS: BP 98/61
[2023-04-20 23:13] VITALS: BP 105/51
[2023-04-21 03:19] VITALS: BP 99/49
[2023-04-21 06:22] LABS: BASOPHILS % (AUTO) 0 % (0-10); EOSINOPHILS # (AUTO) 0.2 10^3/uL (0.0-0.3); EOSINOPHILS % (AUTO) 2 % (0-10); HEMATOCRIT 35 % (35-52); HEMOGLOBIN 11.7 g/dL (11.5-16.0); LYMPHOCYTES # (AUTO) 1.2 10^3/uL (1.0-4.0); LYMPHOCYTES % (AUTO) 16 % (12-44); MEAN CORPUSCULAR HEMOGLOBIN 29 pg (25-34); MEAN CORPUSCULAR HGB CONC 33 g/dL (32-36); MEAN CORPUSCULAR VOLUME 87 fL (80-99); MEAN PLATELET VOLUME 10.8 fL (9.0-12.2); MONOCYTES % (AUTO) 12 % (0-12); NEUTROPHILS # (AUTO) 5.5 10^3/uL (1.8-7.8); NEUTROPHILS % (AUTO) 70 % (42-75); PLATELET COUNT 163 10^3/uL (130-400); WHITE BLOOD COUNT 7.9 10^3/uL (4.3-11.0)
[2023-04-21 06:28] LABS: CALCIUM 8.8 MG/DL (8.5-10.1); CREATININE SERUM 0.53 MG/DL (0.60-1.30); MAGNESIUM 2.1 MG/DL (1.6-2.4); POTASSIUM 3.3 MMOL/L (3.6-5.0)
[2023-04-21] MEDS: SUCRALFATE 1 GM TABLET PO SCH ×3 (06:42→16:39)
[2023-04-21] MEDS: POTASSIUM BICARB 20 MEQ effervescent TABLET PO SCH (06:43)
[2023-04-21] MEDS: POTASSIUM CL 10MEQ/50ML IVPB 50 ML IV SCH (06:43)
[2023-04-21] MEDS: MAGNESIUM 1 GM/100 ML IVPB 100 ML IV SCH (06:44)
[2023-04-21] MEDS: POTASSIUM CHLORIDE 20 MEQ TABLET PO SCH (06:47)
[2023-04-21 07:31] VITALS: BP 98/51
[2023-04-21] MEDS: NS IV 1000 ML 1,000 ML IV SCH (07:34)
[2023-04-21] MEDS ORDERED: POTASSIUM CHLORIDE 20 MEQ TABLET PO ONE ×2 (09:00→11:00)
[2023-04-21] MEDS ORDERED: PANTOPRAZOLE 40 MG TABLET PO SCH (09:00)
--- NOTE | 2023-04-21 09:47 | Physician Query-Final Dx ---
ALENA PELAEZ 04/21/23 0947: Final Diagnosis Give Final Diagnosis Please give Final Diagnosis The medical record reflects the following clinical evidence: Clinical Indicators: Weakness, confusion on admission, GCS 14 on admission did improve to 15, NA on admission 122 did improve to 131 Risk Factor(s): Hyponatremia, advanced age, documentation of "slow-growing" brain tumor Treatment: Lab monitoring, IV fluids IV Fluids/Salt tabs, CT head Metabolic encephalopathy, present on admission, now resolved Other explanation of clinical findings Unable to determine (no explanation for clinical findings) Please clarify and document your clinical opinion in the progress notes and discharge summary including the definitive and/or presumptive diagnosis, (suspected or probable), related to the above clinical findings. Please include clinical findings supporting your diagnosis. Alena Pelaez, MSN, RN Clinical Manager Inpatient [phone] [email or web address] NATHALIE MEJIA MD 04/21/23 1718: Final Diagnosis Give Final Diagnosis Acute metabolic enephalopathy, present on admission, resolved ALENA PELAEZ Apr 21, 2023 09:47 NATHALIE MEJIA MD Apr 21, 2023 17:18
--- NOTE | 2023-04-21 10:57 | Physical Therapy Daily Note ---
PT Daily Note-Current Subjective Per patient and family, they report that nursing staff told them the patient is on bed rest and to use bed glaser. This is not the case. Patient able to be up with assist of 1 with FWW Pain Section J - Health Conditions 1. Rarely or not at all 2. Occasionally 3. Frequently 4. Almost constantly 8. Unable to answer Pain Effect on Sleep: 1 Pain Interference with Therapy: 1 Pain Interference w/Day-to-Day: 1 Mental Status Patient Orientation: Normal For Age Attachments: Oxygen, IV Transfers SCALE: Activities may be completed with or without assistive devices. 1-Xnmscamrzp-vwfwcvy completes the activity by him/herself with no assistance from a helper. 5-Set-up or Clean-up Assistance-helper sets up or cleans up; patient completes activity. [place] assists only prior to or following the activity. 4-Supervision or Touching Assistance-helper provides verbal cues and/or touching/steadying and/or contact guard assistance as patient completes activity. Assistance may be provided throughout the activity or intermittently. 3-Partial/Moderate Assistance-helper does LESS THAN HALF the effort. [place] lifts, holds or supports trunk or limbs, but provides less than half the effort. 2-Substantial/Maximal Assistance-helper does MORE THAN HALF the effort. [place] lifts or holds trunk or limbs and provides more than half the effort. 0-Siswuvlay-sngngz does ALL the effort. Patient does none of the effort to comp lete the activity. Or, the assistance of 2 or more helpers is required for the patient to complete the activity. If activity was not attempted, code reason: 7-Patient Refused. 9-Not Applicable-not attempted and the patient did not perform the activity before the current illness, exacerbation or injury. 10-Not Attempted due to Environmental Limitations-(lack of equipment, weather restraints, etc.). 88-Not Attempted due to Medical Conditions or Safety Concerns. Lying to Sitting/Side of Bed(Q: 3 Sit to Stand (QC): 3 Chair/Zhr-rr-Lonia Xfer(QC): 3 Weight Bearing Right Lower Extremity: Right Full Weight Bearing Left Lower Extremity: Left Full Weight Bearing Gait Training Distance: 200' Walk 10 feet (QC): 4 Walk 50 ft with 2 Turns(QC): 4 Walk 150 ft (QC): 4 Gait Assistive Device: FWW CGA for safety/functional gait sequence Assessment Patient tolerated treatment well and is min to CGA with bed mobility, transfers and ambulation. PT to increase activity as tolerated by patient. PT Cone Runner Goals [facility] Goals PT Chcf Goals Time Frame: May 07, 2023 Roll Left & Right (QC): 6 Sit to Lying (QC): 6 Lying-Sitting on Side/Bed(QC): 6 Sit to Stand (QC): 6 Chair/Izr-fc-Uozkn Xfer(QC): 6 Toilet Transfer (QC): 6 Does the Patient Walk: Yes Walk 10 feet (QC): 6 Walk 50ft with 2 Turns (QC): 6 Walk 150 ft (QC): 6 1 Step (curb) (QC): 4 4 Steps (QC): 4 12 Steps (QC): 4 PT Plan Treatment/Plan Treatment Plan: Continue Plan of Care Treatment Plan: Bed Mobility, Education, Functional Activity Patricia, Functional Strength, Group Therapy, Gait, Safety, Therapeutic Exercise, Transfers Treatment Duration: May 07, 2023 Frequency: 6 times per week Estimated Hrs Per Day: .25 hour per day Time Time In: 921 Time Out: 938 DATE: Apr 21, 2023 Total Billed Treatment Time: 17 Total Billed Treatment 1 visit FA 17 min RADHA SHUKLA PT Apr 21, 2023 10:57
[2023-04-21] MEDS: SENNOSIDES 8.6 MG TABLET PO SCH (10:59)
[2023-04-21] MEDS: DOCUSATE SODIUM 100 MG CAPSULE PO SCH (10:59)
--- NOTE | 2023-04-21 11:25 | Occupational Therapy Eval ---
OT Evaluation-General/PLF Medical Diagnosis Admission Date Apr 19, 2023 at 19:55 Medical Diagnosis: Weakness, Fever, hyponatremia Onset Date: Apr 19, 2023 Therapy Diagnosis Therapy Diagnosis: weakness Precautions Precautions/Isolations: Standard Precautions Comments Patient report that patient is on bedrest w/ bed toileting, NPO per order, family reports giving patient PO intake and that the procedure is not being performed local, waiting for [facility] transfer Referral Physician: Dr. Faith Referral Reason: Activity Tolerance, Self Care, Evaluation/Treatment, Strengthening/ROM Medical History Additional Medical History 84yo F who presented to the ED with weakness, fever, and confusion yesterday. She had come to the ER 2 days ago for fever and was sent home, but reports she got significantly worse yesterday. She became weak and was no longer able to stand or walk on her home and her family reports that she seemed very confused and wasn't making any sense, which is when they had her return to the ER yester day by EMS. Her family states she had a temperature of 102 and was told she had some blood in the urine on the initial visit. Today, she says she has a burning pain in her chest near her esophagus that comes and goes and doesn't radiate anywhere else. She rates the pain as 10/10 and states she very rarely has acid reflux in the past. While talking to her, she is alert and oriented and her family says it is significantly improved from yesterday. She denies pain with urination, blood in her urine, but reports having an increased urinary frequency and constipation. She also reports back pain she has been having since a fall a few weeks back that has gotten a little worse recently and wraps around her side. 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 She denies chest pain or abdominal pain or shortness of breath. Source: patient, family ( and daughter) Current History Patient reports she cannot get out of bed because they told her not too. Patient reaches for therapist arm for assistance, therapist backs away safe distance and in reach of patient, gives verbal instruction and purpose of evaluation. CT SCAN performed 04/20/23 w/ results of multiple masses Reviewed History: Yes Social History Home: Single Level Current Living Status: Spouse Entry Into Home: Stairs With Railing Steps Into Home: 2 ADL-Prior Level of Function SCALE: Activities may be completed with or without assistive devices. 1-Aeqfzyukej-xuxxdkw completes the activity by him/herself with no assistance from a helper. 5-Set-up or Clean-up Assistance-helper sets up or cleans up; patient completes activity. [place] assists only prior to or following the activity. 4-Supervision or Touching Assistance-helper provides verbal cues and/or touching/steadying and/or contact guard assistance as patient completes activity. Assistance may be provided throughout the activity or intermittently. 3-Partial/Moderate Assistance-helper does LESS THAN HALF the effort. [place] lifts, holds or supports trunk or limbs, but provides less than half the effort. 2-Substantial/Maximal Assistance-helper does MORE THAN HALF the effort. [place] lifts or holds trunk or limbs and provides more than half the effort. 1-Fxdjdyzij-ooxoip does ALL the effort. Patient does none of the effort to complete the activity. Or, the assistance of 2 or more helpers is required for the patient to complete the activity. If activity was not attempted, code reason: 7-Patient Refused. 9-Not Applicable-not attempted and the patient did not perform the activity before the current illness, exacerbation or injury. 10-Not Attempted due to Environmental Limitations-(lack of equipment, weather restraints, etc.). 88-Not Attempted due to Medical Conditions or Safety Concerns. Self Care: Independent Functional Cognition: Independent Drive Self: Yes OT Current Status Subjective "I don't think I cam get up" Pain Numeric Pain Scale: 3 Location Body Site: Generalized Mental Status/Objective Patient Orientation: Person, Place, Time, Situation Current Upper Extremity ROM BUE ROM WFLs Upper Extremity Coordination INTACT Upper Extremity Sensation INTACT Upper Extremity Strength +3/5 ADL-Treatment Eating (QC): 88 (NPO, see chart) Oral Hygiene (QC): 88 Shower/Bathe Self (QC): 7 Upper Body Dressing (QC): 4 Lower Body Dressing (QC): 3 On/Off Footwear (QC): 3 Toileting Hygiene (QC): 3 Education OT Patient Education: Correct positioning, Exercise program, Modified ADL techniques, Progress toward Goal/Update tx plan, Purpose of tx/functional activities, Reviewed precautions, Rehab process, Safety issues, Transfer techniques, Use of adapted equipment Teaching Recipient: Patient, Family Teaching Methods: Demonstration Response to Teaching: Verbalize Understanding, Reinforcement Needed OT Welder Gun Goals Mcfp Goals 1=Demonstrate adherence to instructed precautions during ADL tasks. 2=Patient will verbalize/demonstrate understanding of assistive devices/modifications for ADL. 3=Patient will improve strength/tolerance for activity to enable patient to perform ADL's. OT Education/Plan Problem List/Assessment Assessment: Decreased Activ Tolerance, Decreased Safety Aware, Decreased UE Strength, Impaired Cognition, Impaired Coordination, Impaired Funct Balance, Impaired Self-Care Skills Discharge Recommendations Plan/Recommendations: Continue POC Therapy Discharge Recommendati: Post Acute OT Treatment Plan/Plan of Care Treatment,Training & Education: Yes Patient would benefit from OT for education, treatment and training to promote independence in ADL's, mobility, safety and/or upper extremity function for ADL's. Plan of Care: ADL Retraining, Concurrent Therapy, Functional Mobility, Group Exercise/Act as Ind, UE Funct Exercise/Act Treatment Duration: Apr 25, 2023 Frequency: 3 times per week (3-5 times per week) Estimated Hrs Per Day: .25 hour per day Agreement: Yes Rehab Potential: Fair Up in BATHROOM PREPARED FOR SHOWER Time Start Time: 09:01 Stop Time: 09:43 DATE: Apr 21, 2023 Total Time Billed (hr/min): 42 Billed Treatment Time ADL 42 MIN GARRICK MCNALLY OT Apr 21, 2023 11:25
[2023-04-21 12:00] VITALS: BP 101/68
[2023-04-21] MEDS: SODIUM CHLORIDE 1 GM TABLET PO SCH (12:03)
--- NOTE | 2023-04-21 12:26 | Progress Note - Hospitalist ---
FARIBA WEEMS 04/21/23 1226: Subjective HPI/CC On Admission Date Seen by Provider: Apr 21, 2023 Time Seen by Provider: 09:05 Patient is 84yo F who presented to the ED with weakness, fever, and confusion yesterday. She had come to the ER 2 days ago for fever and was sent home, but reports she got significantly worse yesterday. She became weak and was no longer able to stand or walk on her home and her family reports that she seemed very confused and wasn't making any sense, which is when they had her return to the ER yesterday by EMS. Her family states she had a temperature of 102 and was told she had some blood in the urine on the initial visit. Today, she says she has a burning pain in her chest near her esophagus that comes and goes and doesn't radiate anywhere else. She rates the pain as 10/10 and states she very rarely has acid reflux in the past. While talking to her, she is alert and oriented and her family says it is significantly improved from yesterday. She denies pain with urination, blood in her urine, but reports having an increased urinary frequency and constipation. She also reports back pain she has been having since a fall a few weeks back that has gotten a little worse recently and wraps around her side. 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 She denies chest pain or abdominal pain or shortness of breath. Subjective/Events-last exam Patient says she is feeling much better today than she was yesterday and her main complaint today is that she is hungry. She reports she did have a BM yesterday which helped her feel better as well. She is alert and oriented and participates in conversation. She states that her burning esophagus pain is much better today after starting medication for it and her cough has improved. She has increased urinary frequency but no pain with urination. She denies chest pain, SOB, abd pain, nausea, vomiting. Patient was NPO in case they wanted to do the biopsy here but patient and family would prefer to do it at . Review of Systems General: No Chills Pulmonary: Cough (minimal) Cardiovascular: No: Chest Pain Gastrointestinal: No: Nausea, Vomiting, Abdominal Pain, Constipation Genitourinary: Frequency Neurological: Weakness; No: Numbness, Confusion Focused Exam Lactate Level 04/19/23 16:36: Lactic Acid Level 1.03 Objective Exam Vital Signs Vital Signs Date Time Temp Pulse Resp B/P (MAP) Pulse Ox O2 Delivery O2 Flow Rate FiO2 04/21/23 12:00 36.7 91 16 101/68 (79) 97 Nasal Cannula 3.00 Capillary Refill : General Appearance: No Apparent Distress, WD/WN Respiratory: Chest Non Tender, Lungs Clear, No Accessory Muscle Use, No Respiratory Distress Cardiovascular: Regular Rate, Rhythm, No Murmur Gastrointestinal: Normal Bowel Sounds, Non Tender, Soft; No Distended Extremity: No Pedal Edema Neurologic/Psychiatric: Alert, Oriented x3 Skin: Normal Color, Warm/Dry Results/Procedures Lab Laboratory Tests 04/21/23 05:47 Patient resulted labs reviewed. Imaging: Reviewed Imaging Films, Reviewed Imaging Report, Discussed Imaging with Radiologist Assessment/Plan Assessment and Plan Assess & Plan/Chief Complaint Hyponatremia Sodium level improving 131 today- 129 yesterday IV fluids Salt tablet Fever Hypoxia Epigastric pain CT abd/pelvis with and without contrast- showed multiple masses, potential neoplastic lymphadenopathy- pt and family requesting transfer to for biopsy and treatment, switched back to regular diet. CT chest IV protonix Weakness Physical therapy consulted NATHALIE MEJIA MD 04/21/23 1549: Subjective HPI/CC On Admission Time Seen by Provider: 10:30 Assessment/Plan Assessment and Plan Assess & Plan/Chief Complaint Family requested tranfer to [facility]. Spoke with [facility] transfer center yesterday and today, denied due to bed availability. Patient and family refusing further workup including biopsy. Sodium increasing, confusion improving. Diagnosis/Problems Diagnosis/Problems (1) Hyponatremia Status: Acute (2) Weakness Status: Acute (3) Fever Status: Acute Qualifiers: Qualified Codes: R50.9 - Fever, unspecified (4) Retroperitoneal mass Status: Acute (5) Hematuria Status: Acute Qualifiers: Qualified Codes: R31.9 - Hematuria, unspecified (6) Brain tumor Status: Chronic Supervisory-Addendum Brief Verification & Attestation Participated in pt care: history, MDM, physical Personally performed: exam, history, MDM, supervision of care Care discussed with: Medical Student Procedures: n/a A medical student performed and documented this service in my presence. I reviewed and verified all information documented by the medical student and made modifications to such information, when appropriate. I personally performed the physical exam and medical decision making. FARIBA WEEMS Apr 21, 2023 12:26 NATHALIE MEJIA MD Apr 21, 2023 15:49
[2023-04-21 15:55] VITALS: BP 104/65
--- NOTE | 2023-04-22 19:08 | Discharge Summary ---
Discharge Summary Hospital Course Problems/Dx: (1) Hyponatremia Status: Acute (2) Weakness Status: Acute (3) Fever Status: Acute Qualifiers: Qualified Codes: R50.9 - Fever, unspecified (4) Retroperitoneal mass Status: Acute (5) Hematuria Status: Acute Qualifiers: Qualified Codes: R31.9 - Hematuria, unspecified (6) Brain tumor Status: Chronic Hospital Course Date of Admission: Apr 19, 2023 at 19:55 Admission Diagnosis : Hyponatremia Family Physician/Provider: Jhon Cuevas MD Date of Discharge: 04/21/23 Discharge Diagnosis: Retroperitoneal masses, hyponatremia Hospital Course: Hayley Mancilla is an 82 year old female who presented with weakness and confusion and was admitted with hyponatremia. She was given IV fluids and her sodium improved. She was having fevers but no infectious source was identified. A CT scan was obtained for further evaluation which revealed multiple retroperitoneal masses concerning for malignancy. The patient and family requested transfer to [facility]. The transfer was initially declined due to bed availability and medical necessity. The patient and family did not want to pursue further workup, including biopsy, at [facility]. The following day, transfer was accepted to [facility] with Dr. Pastor. Ground transportation was not available and family requested air transfer. She was transferred to [facility] by [facility] in [facility] condition. Labs and Pending Lab Test: Microbiology 04/19/23 Blood Culture - Preliminary, Resulted Home Meds Active Ondansetron Odt (Ondansetron) 4 Mg Tab.rapdis 4 Mg SL Q4H PRN Reported Vitamin C (Ascorbic Acid) 500 Mg Tablet 500 Mg PO DAILY Biotin 2,500 Mcg Capsule 2,500 Mcg PO DAILY Aspirin EC (Aspirin) 81 Mg Tablet.dr 81 Mg PO Q48H Fish Oil 1,200 mg Softgel ([place]-3/Dha/Epa/Fish Oil) 1,200 Mg (144 Mg-216 Mg) Capsule 1,200 Mg PO BID Losartan Potassium 50 Mg Tablet 50 Mg PO HS Atorvastatin Calcium 40 Mg Tablet 40 Mg PO HS Citalopram HBr (Citalopram Hydrobromide) 10 Mg Tablet 20 Mg PO DAILY TAKES 2 (10MG) TABS Assessment/Pt Instructions Transferred to [facility] Discharge Planning: >30 minutes discharge planning Discharge Physical Examination Vital Signs Vital Signs Date Time Temp Pulse Resp B/P (MAP) Pulse Ox O2 Delivery O2 Flow Rate FiO2 04/21/23 15:55 38.0 85 20 104/65 (78) 97 Nasal Cannula 3.00 Allergies: Coded Allergies: No Known Drug Allergies (Unverified , 04/18/23) Copy Copies To 1: JHON CUEVAS MD Discharge Summary Date of Admission Apr 19, 2023 at 19:55 Date of Discharge Apr 21, 2023 at 19:13 Discharge Date: Apr 21, 2023 Discharge Time: 19:13 Admission Diagnosis Hyponatremia Discharge Diagnosis Retroperitoneal masses Fever Weakness Confusion Hyponatremia Brain tumor (1) Hyponatremia Status: Acute (2) Weakness Status: Acute (3) Fever Status: Acute Qualifiers: Qualified Codes: R50.9 - Fever, unspecified (4) Retroperitoneal mass Status: Acute (5) Hematuria Status: Acute Qualifiers: Qualified Codes: R31.9 - Hematuria, unspecified (6) Brain tumor Status: Chronic NATHALIE MEJIA MD Apr 22, 2023 19:03
== END 2023-04-21 19:13 | disposition short-term general hospital (02) | DRG 640 ==
LOC: EDUNIT# 16:27 → ER 16:28 → 4TH 19:30 → OBSVTOIN 19:55
PROVIDERS: ADMIT Internal Medicine; ATTEND Internal Medicine
DX: E87.1 Hypo-osmolality and hyponatremia (principal); G93.41 Metabolic encephalopathy; R50.9 Fever, unspecified; R31.9 Hematuria, unspecified; D49.6 Neoplasm of unspecified behavior of brain; R19.09 Other intra-abdominal and pelvic swelling, mass and lump; R53.1 Weakness; Z20.822 Contact with and (suspected) exposure to COVID-19
CPT/HCPCS: 36415; 70450; 71045; 71250; 74178; 80048; 80053; 80076; 81000; 82550; 83605; 83615; 83735; 85025; 85652; 86141; 87040; 87077; 87430; 87636; 94760

== ENCOUNTER 2023-05-21 04:40 | Emergency (ER) | payer MEDICARE, OTHER ==
[~2023-05-21] VITALS: Ht 149.9 cm; Wt 63.0 kg
[~2023-05-21 04:40] MED LIST changes: +ASCO500T17 PO; +ASPI-1238 PO; +ATOR40TA70 PO; +BIOT25007 PO; +CITA10TA9 PO; +LOSA50TA63 PO; +OMEG12002 PO
--- NOTE | 2023-05-21 05:16 | ED General ---
General Chief Complaint: General Problems/Pain Stated Complaint: VOMITING Source of Information: Patient, Family () Exam Limitations: No Limitations (CORY LANIER MD) History of Present Illness Date Seen by Provider: May 21, 2023 Time Seen by Provider: 05:00 Initial Comments Patient is an 82yo female brought to the emergency department by family for persistent cough/vomiting/spitting up since abut 0130 this morning. She also reportedly had fever at home and was given 1 tylenol DIRECT [employer]ESSION[employer]. Patient states currently she is not nauseated. She states she has only been throwing up water. SHe complains of a very dry mouth and thinks she is dehydrated. Denies pain any where. No headache. Is not short of breath. states her urine is "dark yellow". SHe denies dysuria. No diarrhea. No sick contacts. She was just relea sed from last week. Currently being worked up for retroperitoneal mass, with unsuccessful attempts at biopsy by . She states "they went down my throat and into my back". Scheduled to go back up next week for more tests. She and her have no idea what kind of cancer she may have. No reported fevers. She has had a cough with "slimy" sputum. Has a right infusaport placed last month. She states we cannot access. Timing/Duration: 4-6 Hours Severity: Moderate Associated Systoms: Cough, Nausea/Vomiting (CORY LANIER MD) Allergies and Home Medications Allergies Coded Allergies: No Known Drug Allergies (Unverified , 04/18/23) Patient Home Medication List Home Medication List Reviewed: Yes (CORY LANIER MD) Ascorbic Acid (Vitamin C) 500 Mg Tablet, 500 MG PO DAILY, (Reported) Entered as Reported by: PATTIE AN on 04/20/23 1251 Aspirin (Aspirin EC) 81 Mg Tablet.dr, 81 MG PO Q48H, (Reported) Entered as Reported by: PATTIE AN on 04/20/23 1251 Atorvastatin Calcium (Atorvastatin Calcium) 40 Mg Tablet, 40 MG PO HS, (Reported) Entered as Reported by: PATTIE AN on 04/20/23 1251 Biotin (Biotin) 2,500 Mcg Capsule, 2,500 MCG PO DAILY, (Reported) Entered as Reported by: PATTIE AN on 04/20/23 1251 Citalopram Hydrobromide (Citalopram HBr) 10 Mg Tablet, 20 MG PO DAILY, (Reported) Entered as Reported by: PATTIE AN on 04/20/23 1251 Losartan Potassium (Losartan Potassium) 50 Mg Tablet, 50 MG PO HS, (Reported) Entered as Reported by: PATTIE AN on 04/20/23 1251 [place]-3/Dha/Epa/Fish Oil (Fish Oil 1,200 mg Softgel) 1,200 Mg (144 Mg-216 Mg) Capsule, 1,200 MG PO BID, (Reported) Entered as Reported by: PATTIE AN on 04/20/23 1251 Ondansetron (Ondansetron Odt) 4 Mg Tab.rapdis, 4 MG SL Q4H PRN for NAUSEA/VOMITING Prescribed by: Daily Briggs on 04/18/23 1314 Review of Systems Review of Systems Constitutional: see HPI, other (dry mouth) EENTM: no symptoms reported Respiratory: cough Cardiovascular: no symptoms reported Gastrointestinal: nausea Genitourinary: decreased output Musculoskeletal: no symptoms reported Skin: no symptoms reported (CORY LANIER MD) All Other Systems Reviewed Negative Unless Noted: Yes (CORY LANIER MD) Past Blwajge-Uultaf-Acbzrv Hx Patient Social History Tobacco Use?: No Substance use?: No Alcohol Use?: No (CORY LANIER MD) Immunizations Up To Date Influenza Vaccine Up-to-Date: No; Not Current First/Initial COVID19 Vaccinat: RECEIVED Second COVID19 Vaccination Abdiel: RECEIVED COVID19 Vaccine Insurance Agents Supervisor: STATES RECEIVED 2 VACCINES (CORY LANIER MD) Past Medical History Surgery/Hospitalization HX: BRAIN TUMOR, THYROID, APPY, HTN, ANXIETY, Surgeries: Yes Appendectomy Cardiac: Yes High Cholesterol Neurological: Yes (DX 10/26) Brain Tumor Gastrointestinal: No Musculoskeletal: No Cancer: Yes Brain Psychosocial: No (CORY LANIER MD) Family Medical History No Pertinent Family Hx (CORY LANIER MD) Physical Exam Vital Signs Vital Signs - First Documented 05/21/23 05/21/23 04:47 06:00 Temp 36.9 Pulse 99 Resp 16 B/P (MAP) 122/62 (82) Pulse Ox 94 O2 Delivery Room Air O2 Flow Rate 2.00 (GLORIA JEREZ MD) Vital Signs Capillary Refill : (CORY LANIER MD) Height, Weight, BMI Height: '" Weight: lbs. oz. kg; 24.49 BMI Method: General Appearance: No Apparent Distress, Chronically ill (CORY LANIER MD) Progress/Results/Core Measures Suspected Sepsis SIRS Temperature: Pulse: Respiratory Rate: Laboratory Tests 05/21/23 05:05: White Blood Count 10.4 Blood Pressure / Mean: Laboratory Tests 05/21/23 05:05: Creatinine 0.61, Platelet Count 208, Total Bilirubin 1.3H (CORY LANIER MD) Results/Orders Lab Results Laboratory Tests Test 05/21/23 05:05 05/21/23 05:25 Range/Units White Blood Count 10.4 4.3-11.0 10^3/uL Red Blood Count 4.02 3.80-5.11 10^6/uL Hemoglobin 11.9 11.5-16.0 g/dL Hematocrit 35 35-52 % Mean Corpuscular Volume 88 80-99 fL Mean Corpuscular Hemoglobin 30 25-34 pg Mean Corpuscular Hemoglobin Concent 34 32-36 g/dL Red Cell Distribution Width 13.1 10.0-14.5 % Platelet Count 208 130-400 10^3/uL Mean Platelet Volume 11.3 9.0-12.2 fL Immature Granulocyte % (Auto) 1 % Neutrophils (%) (Auto) 76 H 42-75 % Lymphocytes (%) (Auto) 10 L 12-44 % Monocytes (%) (Auto) 12 0-12 % Eosinophils (%) (Auto) 1 0-10 % Basophils (%) (Auto) 1 0-10 % Neutrophils # (Auto) 7.8 1.8-7.8 10^3/uL Lymphocytes # (Auto) 1.1 1.0-4.0 10^3/uL Monocytes # (Auto) 1.3 H 0.0-1.0 10^3/uL Eosinophils # (Auto) 0.1 0.0-0.3 10^3/uL Basophils # (Auto) 0.1 0.0-0.1 10^3/uL Immature Granulocyte # (Auto) 0.1 0.0-0.1 10^3/uL Sodium Level 134 L 135-145 MMOL/L Potassium Level 3.8 3.6-5.0 MMOL/L Chloride Level 101 98-107 MMOL/L Carbon Dioxide Level 22 21-32 MMOL/L Anion Gap 11 5-14 MMOL/L Blood Urea Nitrogen 8 7-18 MG/DL Creatinine 0.61 0.60-1.30 MG/DL Estimat Glomerular Filtration Rate 89 BUN/Creatinine Ratio 13 Glucose Level 109 H 70-105 MG/DL Calcium Level 9.8 8.5-10.1 MG/DL Corrected Calcium 10.1 8.5-10.1 MG/DL Total Bilirubin 1.3 H 0.1-1.0 MG/DL Aspartate Amino Transf (AST/SGOT) 29 5-34 U/L Alanine Aminotransferase (ALT/SGPT) 15 0-55 U/L Alkaline Phosphatase 91 40-136 U/L Total Protein 8.1 6.4-8.2 GM/DL Albumin 3.6 3.2-4.5 GM/DL Urine Color YELLOW Urine Clarity CLEAR Urine pH 7.0 5-9 Urine Specific [place] 1.020 1.016-1.022 Urine Protein 1+ H NEGATIVE Urine Glucose (UA) NEGATIVE NEGATIVE Urine Ketones NEGATIVE NEGATIVE Urine Nitrite NEGATIVE NEGATIVE Urine Bilirubin NEGATIVE NEGATIVE Urine Urobilinogen 2.0 < = 1.0 MG/DL Urine Leukocyte Esterase NEGATIVE NEGATIVE Urine RBC (Auto) 3+ H NEGATIVE Urine RBC 5-10 H /HPF Urine WBC RARE /HPF Urine Crystals NONE /LPF Urine Bacteria NEGATIVE /HPF Urine Casts NONE /LPF Urine Mucus NEGATIVE /LPF Urine Culture Indicated NO (GLORIA JEREZ MD) Vital Signs/I&O 05/21/23 05/21/23 05/21/23 04:47 04:47 06:00 Temp 36.9 Pulse 99 Resp 16 B/P (MAP) 122/62 (82) Pulse Ox 94 88 O2 Delivery Room Air Room Air Nasal Cannula O2 Flow Rate 2.00 (GLORIA JEREZ MD) Vital Signs/I&O Capillary Refill : (CORY LANIER MD) Progress Note : Time: 06:13 Progress Note Patient reevaluated at this time. She did drop her oxygen saturations to 88/89%. Placed on 2 L satting 98%. She has completed a 500 cc normal saline bolus. She states she feels much better. She is attempting to sip on some ice water at this time. She states that she did have to wear a little oxygen while at last week but it was brief. She did not get sent home with oxygen. Will check a chest x-ray prior to discharge. She has good clear follow-up scheduled at for next week. Her labs have been reviewed, CBC is normal, chemistry is normal she is not hyponatremic. She does have a little microscopic hematuria with no evidence of infection. Final disposition passed to Dr. Jerez at shift change (CORY LANIER MD) Progress Note : Progress Note Received the patient in signout pending her chest x-ray. This was normal on my interpretation with no obvious pneumonia, no pneumothorax, no obvious pulmonary edema. I was able to turn her oxygen off, I was able to get her to talk quite a bit, move around the room, and her oxygen stayed around 94%. Unclear why it transiently went down to 88 to 89%. Patient is continuing to feel much better, she wants to go home. She has follow-up with in less than 2 days. I believe she is stable for discharge with outpatient follow-up. She was sent home with strict return precautions (GLORIA JEREZ MD) Diagnostic Imaging Diagonstic Imaging: Xray (chest) Comments [facility] [place]. [place], [place] NAME: JEAN D[facility]AZ [facility] REC#: [id number] PT STATUS: REG ER : 1940 PHYSICIAN: CORY LANIER MD ADMIT DATE: 05/21/23/ER Draft Date of Exam:05/21/23 CHEST 1 VIEW, AP/PA ONLY INDICATION: Productive cough, hypoxemia Portable chest 6:29 AM Right IJ Port-A-Cath tip projects over the SVC. Heart size and pulmonary vascularity are normal. Lungs are clear. There are no effusions or pneumothoraces. IMPRESSION: No acute abnormalities in the chest Dictated on workstation # [id number] Dict: 05/21/23 0657 Trans: 05/21/23 0700 AME [id number] Interpreted by: MIRTHA SORIANO MD Electronically signed by: (GLORIA JEREZ MD) Departure Impression Primary Impression: Vomiting Qualified Codes: R11.11 - Vomiting without nausea Disposition: 01 HOME, SELF-CARE Condition: Improved Departure-Patient Inst. Decision time for Depature: 07:20 (GLORIA JEREZ MD) Referrals: JHON CUEAVS MD (PCP/Family) Primary Care Physician Patient Instructions: Nausea and Vomiting, Adult ED Add. Discharge Instructions: [place] diet for the next 6-12 hours. Take your nausea medicines that you have at home scheduled for the next day or so. A refill of the nausea medicine was sent to your pharmacy in case you run out. Continue your normal medications at home. If you develop a fever, pain, worsening vomiting, please return to the Emergency Department for re-evaluation. Scripts Ondansetron (Ondansetron Odt) 4 Mg Tab.rapdis 4 MG SL Q6H PRN for NAUSEA/VOMITING for 5 Days, #20 TAB Prov: GLORIA JEREZ MD 05/21/23 Copy Copies To 1: JHON CUEVAS MD, KATHRYN M MD May 21, 2023 05:16 GLORIA JEREZ MD May 21, 2023 07:11
[2023-05-21] MEDS ORDERED: NS IV 500 ML 500 ML IV STA (05:17)
[2023-05-21 05:33] LABS: BASOPHILS # (AUTO) 0.1 10^3/uL (0.0-0.1); BASOPHILS % (AUTO) 1 % (0-10); EOSINOPHILS # (AUTO) 0.1 10^3/uL (0.0-0.3); EOSINOPHILS % (AUTO) 1 % (0-10); HEMATOCRIT 35 % (35-52); HEMOGLOBIN 11.9 g/dL (11.5-16.0); LYMPHOCYTES # (AUTO) 1.1 10^3/uL (1.0-4.0); LYMPHOCYTES % (AUTO) 10 % (12-44); MEAN CORPUSCULAR HEMOGLOBIN 30 pg (25-34); MEAN CORPUSCULAR HGB CONC 34 g/dL (32-36); MEAN CORPUSCULAR VOLUME 88 fL (80-99); MEAN PLATELET VOLUME 11.3 fL (9.0-12.2); MONOCYTES # (AUTO) 1.3 10^3/uL (0.0-1.0); MONOCYTES % (AUTO) 12 % (0-12); NEUTROPHILS # (AUTO) 7.8 10^3/uL (1.8-7.8); NEUTROPHILS % (AUTO) 76 % (42-75); PLATELET COUNT 208 10^3/uL (130-400); WHITE BLOOD COUNT 10.4 10^3/uL (4.3-11.0)
[2023-05-21 05:34] LABS: ALBUMIN 3.6 GM/DL (3.2-4.5); POTASSIUM 3.8 MMOL/L (3.6-5.0)
[2023-05-21 05:36] LABS: CALCIUM 9.8 MG/DL (8.5-10.1)
[2023-05-21 05:37] LABS: TOTAL PROTEIN 8.1 GM/DL (6.4-8.2)
[2023-05-21 05:38] LABS: BILIRUBIN,TOTAL 1.3 MG/DL (0.1-1.0)
[2023-05-21 05:40] LABS: CREATININE SERUM 0.61 MG/DL (0.60-1.30)
[2023-05-21 05:48] LABS: COLOR,URINE YELLOW
[2023-05-21 05:49] LABS: BILIRUBIN,URINE NEGATIVE (NEGATIVE); CLARITY,URINE CLEAR; GLUCOSE, URINE (UA) NEGATIVE (NEGATIVE); KETONES,URINE NEGATIVE (NEGATIVE); LEUKOCYTE ESTERASE ,URINE NEGATIVE (NEGATIVE); NITRITE,URINE NEGATIVE (NEGATIVE); PROTEIN,URINE 1+ (NEGATIVE); WBC,URINE RARE /HPF
[2023-05-21 05:50] LABS: BACTERIA,URINE NEGATIVE /HPF
--- NOTE | 2023-05-21 07:00 | Diagnostic Imaging Report ---
INDICATION: Productive cough, hypoxemia Portable chest 6:29 AM Right IJ Port-A-Cath tip projects over the SVC. Heart size and pulmonary vascularity are normal. Lungs are clear. There are no effusions or pneumothoraces. IMPRESSION: No acute abnormalities in the chest Dictated by: Dictated on workstation # [id number]
[2023-05-21] MEDS ORDERED: ONDA4TAB11 SL (07:20)
[2023-05-21 07:29] VITALS: BP 127/63
== END 2023-05-21 07:29 | disposition home or self-care (01) ==
LOC: EDUNIT# 04:40 → ER 04:42
DX: R11.10 Vomiting, unspecified (principal)
CPT/HCPCS: 36415; 71045; 80053; 81000; 85025